=== PATIENT | male | born 1955 | race Caucasian/White ===

== ENCOUNTER → 2019-05-20 | Outpatient (CLI) | payer OTHER ==
--- NOTE | 2019-05-20 09:02 | Diagnostic Imaging Report ---
INDICATION: Upper abdominal pain. FINDINGS: The liver is upper limits of normal in size at 18 cm. There is diffuse increased echogenicity consistent with hepatic steatosis. No discrete liver mass is identified. The portal vein is patent and shows normal direction of flow. The gallbladder is without stones or sludge. No wall thickening or biliary ductal dilatation is identified. The pancreas is obscured by bowel gas. Spleen measures 6.9 cm. Aorta was obscured by bowel gas. IVC is poorly visualized. Both right and left kidneys demonstrate normal cortical thickness and echogenicity. No calculi or hydronephrosis is seen. There is no ascites. IMPRESSION: 1. Hepatic steatosis. 2. No evidence of cholelithiasis or acute cholecystitis. 3. No other significant abnormality is seen, however, study is somewhat compromised due to bowel gas. Dictated by: Dictated on workstation # [id number]
== END ==
LOC: RAD 08:08
PROVIDERS: ATTEND Nurse Practitioner
DX: K76.0 Fatty (change of) liver, not elsewhere classified (principal)
CPT/HCPCS: 76700

== ENCOUNTER → 2020-06-23 | Outpatient (CLI) | payer OTHER ==
[~2020-06-23] VITALS: Ht 175 cm; Wt 106.0 kg
[~2020-06-23] MED LIST: CATHETER FLUSH 10 ML SYR IV PRN; REGADENOSON 0.4 MG/5 ML SYR (LEXISCAN) IV ONE
[2020-06-23 11:00] VITALS: BP 155/95
--- NOTE | 2020-06-23 13:22 | STRESS TEST ---
DATE OF SERVICE: 06/23/2020 RESTING AND POST REGADENOSON TECHNETIUM-99M TETROFOSMIN SPECT CT IMAGING CLINICAL DIAGNOSIS: Shortness of breath. ORDERING PHYSICIAN: Dr. Hansen. Baseline images were carried out after injection of 10.38 mCi of technetium-99m Tetrofosmin. This was followed by 0.4 mg of Regadenoson and 33 mCi of technetium-99m Tetrofosmin for stress imaging. The electrocardiogram showed sinus rhythm with a right bundle branch block pattern. This did not change with the Regadenoson infusion. The patient tolerated the procedure well. Review of images at rest and following stress indicates a small basal inferior perfusion defect that appears predominantly fixed. Gated images show a well preserved global left ventricular systolic function. No distinct regional wall motion abnormalities seen. Left ventricular ejection fraction is calculated to be 76%. Left ventricular end diastolic volume is 39 mL. TID is absent (0.97). CONCLUSIONS: 1. This study is suggestive of a small basal inferior infarction with a small amount of ischemia. 2. Normal to hyperdynamic left ventricular systolic function with a calculated ejection fraction of 76%. Job ID: [id number] DocumentID: [id number] Dictated Date: 06/23/2020 12:41:02 Engine House Helper Date: 06/23/2020 13:21:56 Dictated By: ZULLY HANSEN MD, MA, FACP, FACC, MTDD
== END ==
LOC: CARD 09:37
PROVIDERS: ATTEND Internal Medicine Cardiovascular Disease
DX: R06.09 Other forms of dyspnea (principal)
CPT/HCPCS: 78452; 93017; 93306

== ENCOUNTER 2020-06-30 08:00 | Day surgery (SDC) | payer OTHER ==
[~2020-06-30] VITALS: Ht 175 cm; Wt 105.0 kg
[2020-06-30] VITALS (12 sets, daily range): BP systolic 98–157; BP diastolic 72–108
[2020-06-30 07:33] LABS: HEMOGLOBIN 14.8 g/dL (13.3-17.7); MEAN PLATELET VOLUME 9.7 fL (9.0-12.2); WHITE BLOOD COUNT 7.7 10^3/uL (4.3-11.0)
[2020-06-30 07:47] LABS: PROTHROMBIN TIME PATIENT 13.5 SEC (12.2-14.7)
[2020-06-30 07:53] LABS: ALANINE AMINOTRANSFERASE 61 U/L (0-55); ALBUMIN 4.3 GM/DL (3.2-4.5); ALKALINE PHOSPHATASE 73 U/L (40-136); BILIRUBIN,TOTAL 0.9 MG/DL (0.1-1.0); BUN/CREATININE RATIO 11; CALCIUM 9.4 MG/DL (8.5-10.1); CARBON DIOXIDE 23 MMOL/L (21-32); CHLORIDE 105 MMOL/L (98-107); CHOLESTEROL 144 MG/DL (< 200); CREATININE SERUM 1.11 MG/DL (0.60-1.30); GFR ESTIMATED > 60; GLUCOSE 108 MG/DL (70-105); HDL CHOLESTEROL 37 MG/DL (40-60); POTASSIUM 3.5 MMOL/L (3.6-5.0); SODIUM 141 MMOL/L (135-145); TOTAL PROTEIN 8.3 GM/DL (6.4-8.2); TRIGLYCERIDES 100 MG/DL (<150); VLDL CHOLESTEROL 20 MG/DL (5-40)
[~2020-06-30 08:00] MED LIST changes: +ALLO100T PO; +ASPI-1238 PO; +ATOR80TA76 PO; -CATHETER FLUSH 10 ML SYR IV PRN; +HEParin (CATH LAB) 2,000 ML IV ONE; +HYDR25TA4 PO; +LIDOCAINE 1% INJ 20 ML 20 ML VIAL INJ ONE; +LIDOCAINE 1% INJ 20 ML 20 ML VIAL ONE; +MIDAZOLAM 5 MG/5 ML (VERSED) VIAL ONE; +NS IV 1000 ML 1,000 ML IV SCH; +NS IV 1000 ML 1,000 ML ONE; +OMEP20CA18 PO; +POTA20TA15 PO; +PROP10TA8 PO; -REGADENOSON 0.4 MG/5 ML SYR (LEXISCAN) IV ONE; +fentaNYL INJECTION 100 MCG/2 ML AMP ONE
--- NOTE | 2020-06-30 08:50 | Cardiac Procedure Note-CS/ASA ---
Pre-Procedure Note Pre-Op Procedure Note H&P Reviewed The H&P was reviewed, patient examined and no changes noted. Date H&P Reviewed: Jun 30, 2020 Time H&P Reviewed: 08:20 Conscious Sedation Pre-Proced Time 08:20 ASA Score 3 For ASA 3 and 4: Consider anesthesia and medical clearance. Also, for patients with a history of failed moderate sedation consider anesthesia. Airway Lungs Heart ASA score ASA 1: a normal healthy patient ASA 2: a patient with a mild systemic disease (mid diabetes, controlled hypertension, obesity ASA 3: a patient with a severe systemic disease that limits activity (angina, COPD, prior Myocardial infarction) ASA 4: a patient with an incapacitating disease that is a constant threat to life (CHF, renal failure) ASA 5: a moribund patient not expected to survive 24 hrs. (ruptured aneurysm) ASA 6: a declared brain- patient whose organs are being harvested. For emergent operations, add the letter E after the classification Mallampati Classification Grade 2 Sedation Plan Analgesia, Amnesia, Plan communicated to team members, Discussed options with patient/fam, Discussed risks with patient/fam The patient is an appropriate candidate to undergo the planned procedure, sedation, and anesthesia. The patient immediately re-assessed prior to indication. ZULLY FLANAGAN MD FACP FAC CCDS Jun 30, 2020 08:50
[2020-06-30] MEDS ORDERED: PROP10TA8 PO (08:54)
--- NOTE | 2020-06-30 08:54 | Discharge Inst-Cardiology ---
Discharge Inst-Cardiac Discharge Medications New Medications: Propranolol HCl (Propranolol HCl) 10 Mg Tablet 10 MG PO TID, #90 TAB 5 Refills Continued Medications: Allopurinol (Allopurinol) 100 Mg Tablet 100 MG PO DAILY, TAB Aspirin (Aspirin EC) 81 Mg Tablet.dr 81 MG PO DAILY, TAB Atorvastatin Calcium (Atorvastatin Calcium) 80 Mg Tablet 80 MG PO HS, TAB Hydrochlorothiazide (Hydrochlorothiazide) 25 Mg Tablet 25 MG PO DAILY, TAB Omeprazole (Omeprazole) 20 Mg Capsule.dr 20 MG PO DAILY, CAP Potassium Chloride (Potassium Chloride) 20 Meq Tab.er.prt 20 MEQ PO DAILY Discontinued Medications: Propranolol HCl (Propranolol HCl) 10 Mg Tablet 5 MG PO DAILY, TAB ZULLY FLANAGAN MD FACP FAC CCDS Jun 30, 2020 08:54
--- NOTE | 2020-06-30 08:55 | Discharge Inst-Post CATH ---
Discharge Inst-CATH/EP Post Cardiac Cath/EP D/C Inst Follow Up/Plan F/u with Dr Hansen in 1 week ACTIVITY * Go Home directly and rest. * Limit activity of the leg (or wrist if it was used) for 7 days including aerobics, swimming, jogging, bicycling, etc. * Restrict stair-climbing for 7 days if possible, if not, climb up with your non -cath leg, then bring together on the same step. * Avoid lifting, pushing, pulling or excessive movement of the affected extr emity for 7 days. * Customary sexual activity may be resumed after 2 days-use caution not to use a position that strains or causes pain to the affected extremity. * No driving for 24 hours. * NO SMOKING. * Avoid straining for bowel movements for 7 days. * Gentle walking on level ground is allowed. * Returning to work will depend on the type of procedure and the results. Your doctor will discuss this with you. CALL YOUR DOCTOR FOR ANY OF THE FOLLOWING: *If bleeding from the puncture site occurs- Apply gentle pressure to site with clean cloth and call your doctor or EMS. * If a knot or lump forms under the skin, increases in size, or causes pain. * If bruising appears to be worsening or moving further down your leg instead of disappearing. * Temperature above 101 F. CARE OF YOUR GROIN INCISION; * Bruising or purple discoloration of the skin near the puncture site is common. * You may shower only, no bathtub bathing for 5 days. Be careful to avoid slipping as your leg may feel stiff. * If a closure device was used on your femoral artery, please see the attached guide regarding care of the device and your leg. * Leave dressing on FOR 24 hours. CARE OF YOUR WRIST INCISION; * Bruising or purple discoloration of the skin near the puncture site is common. * You may shower. * DO NOT submerge wrist. * Leave dressing on FOR 24 hours. ZULLY HANSEN MD FACP FAC CCDS Jun 30, 2020 08:55
[2020-06-30] MEDS ORDERED: PATIENT MAY USE OWN MEDS, ALL PO SCH (09:00)
[2020-06-30] MEDS ORDERED: NS IV 1000 ML 1,000 ML IV SCH (09:00)
[2020-06-30] MEDS ORDERED: KCL 20 MEQ TAB (K-DUR) PO ONE (09:00)
--- NOTE | 2020-06-30 11:46 | CARDIAC CATHETERIZATION ---
DATE OF SERVICE: 06/30/2020 CARDIAC CATHETERIZATION REPORT The patient is a 65-year-old man with multiple coronary artery disease risk factors who has been experiencing palpitations and chest discomfort. Myocardial perfusion imaging was abnormal. Cardiac catheterization was carried out after having obtained an informed consent. DESCRIPTION OF PROCEDURE: He was brought to the cardiac catheterization laboratory in a fasting state. Right groin was prepared and draped in the usual sterile fashion. Lidocaine 1% was used for local anesthesia. Modified Seldinger technique was used to advance a 5-Cymro sheath into the right femoral artery. A 5-Cymro JL4 catheter was used for left coronary angiography. A 5-Cymro JR4 catheter was used for right coronary angiography. A 5-Cymro pigtail catheter was used for left heart catheterization and left ventricular angiography. The catheter was pulled back and removed. Angiography of the right femoral artery was carried out through the sheath. Mynx was used to achieve hemostasis. He tolerated the procedure well. HEMODYNAMICS: Left ventricular end-diastolic pressure following coronary angiography was 14 mmHg. There was no significant pressure gradient on pullback across the aortic valve. LEFT VENTRICULAR ANGIOGRAPHY: Left ventricular angiography was carried out in the right anterior oblique projection. Global left ventricular systolic function is well preserved. No regional wall motion abnormalities seen on this view. Left ventricular ejection fraction is estimated to be 55% to 60%. CORONARY ANGIOGRAPHY: Mild coronary calcification is seen. Left main coronary artery is free of significant disease. Left anterior descending artery has mild plaques. Ramus intermedius artery has mild plaques. Left circumflex artery is codominant and does not exhibit significant disease. Right coronary artery is codominant and exhibits mild plaque. CONCLUSIONS: 1. Angiographically mild coronary artery disease. 2. Normal global left ventricular systolic function with ejection fraction of 50 to 60%. 3. Left ventricular end-diastolic pressure is 14 mmHg. DISCUSSION AND RECOMMENDATIONS: Based on results of the study, it appears appropriate to continue a conservative approach. Risk factor modification has been reviewed. Current regimen consists of low dose aspirin, statin, and beta-hugo. This is being continued. He has a history of hypertension and takes a very small dose of propranolol. We have advised that he increase his propranolol from 5 mg a day to 10 mg 3 times a day. Outpatient followup is advised. Job ID: [id number] DocumentID: [id number] Dictated Date: 06/30/2020 09:00:18 Inshore Undersea Warfare Officer Date: 06/30/2020 11:44:49 Dictated By: ZULLY FLANAGAN MD, MA, FACP, FACC,
--- NOTE | 2020-06-30 13:40 | OPERATIVE REPORT ---
DATE OF SERVICE: 06/30/2020 PREOPERATIVE DIAGNOSIS: Palpitations. POSTOPERATIVE DIAGNOSIS: Palpitations. PROCEDURE PERFORMED: Implantable loop recorder implantation. INDICATIONS FOR PROCEDURE: The patient is a 65-year-old gentleman, who has palpitations that are relatively infrequent, but quite bothersome to him. Implantable loop recorder implantation was carried out today after having obtained an informed consent. DESCRIPTION OF PROCEDURE: [facility] The left prepectoral area was prepared and draped in the usual sterile fashion. Lidocaine 1% was used for local anesthesia. The tools provided with the [employer] Reveal LINQ device were used to make a subcutaneous pocket anterior to the left fourth intercostal space into which the device was placed. The serial number of the device is [id number]. The skin edges were closed using Dermabond and Steri-Strips. The patient tolerated the procedure well. Job ID: [id number] DocumentID: [id number] Dictated Date: 06/30/2020 09:03:02 Dredge Pumper Date: 06/30/2020 13:40:12 Dictated By: ZULLY FLANAGAN MD, MA, FACP, FACC,
== END 2020-06-30 12:35 | disposition home or self-care (01) ==
LOC: CATH 08:00 → SDC 09:23 → CATH 12:35
PROVIDERS: ATTEND Internal Medicine Cardiovascular Disease
DX: I25.10 Atherosclerotic heart disease of native coronary artery without angina pectoris (principal); I48.0 Paroxysmal atrial fibrillation; Z79.82 Long term (current) use of aspirin; Z79.899 Other long term (current) drug therapy; Z88.8 Allergy status to other drugs, medicaments and biological substances; Z87.891 Personal history of nicotine dependence; Z83.3 Family history of diabetes mellitus; Z80.9 Family history of malignant neoplasm, unspecified
CPT/HCPCS: 33285; 36415; 80053; 80061; 85027; 85610; 85730; 87081; 93458

== ENCOUNTER 2020-08-06 01:42 | Emergency (ER) | payer OTHER ==
[~2020-08-06] VITALS: Ht 175.3 cm; Wt 106.6 kg
[~2020-08-06 01:42] MED LIST changes: -HEParin (CATH LAB) 2,000 ML IV ONE; -LIDOCAINE 1% INJ 20 ML 20 ML VIAL INJ ONE; -LIDOCAINE 1% INJ 20 ML 20 ML VIAL ONE; -MIDAZOLAM 5 MG/5 ML (VERSED) VIAL ONE; -NS IV 1000 ML 1,000 ML IV SCH; -NS IV 1000 ML 1,000 ML ONE; -fentaNYL INJECTION 100 MCG/2 ML AMP ONE
--- NOTE | 2020-08-06 02:01 | ED General ---
General Stated Complaint: HTN,SOB,DIZZY History of Present Illness Date Seen by Provider: Aug 06, 2020 Time Seen by Provider: 01:55 Initial Comments 65-year-old male presents because he just feels "a little unwell" patient reports that around 10 he started feeling a little off. That normally when he feels like this he takes a Klonopin and a "half an anxiety pill and feel it gets better. Reports that he continues to feel that he got little bit worse. Feels like a little "fluttering in his chest" his blood pressure was elevated, felt little short of breath. Little dizzy. Presented here he states he feels a little anxious little dizzy. Still has a little bit of fluttering. Denies any actual pain in his chest. No reports of any fever, chills, vomiting, and wheezing or other complaints Allergies and Home Medications Allergies Coded Allergies: bupropion (Verified Allergy, Unknown, 06/30/20) lisinopril (Verified Allergy, Unknown, 06/30/20) nicotine (Verified Allergy, Unknown, 06/30/20) Home Medications Allopurinol 100 Mg Tablet, 100 MG PO DAILY, (Reported) Aspirin 81 Mg Tablet.dr, 81 MG PO DAILY, (Reported) Atorvastatin Calcium 80 Mg Tablet, 80 MG PO HS, (Reported) Hydrochlorothiazide 25 Mg Tablet, 25 MG PO DAILY, (Reported) Omeprazole 20 Mg Capsule.dr, 20 MG PO DAILY, (Reported) Potassium Chloride 20 Meq Tab.er.prt, 20 MEQ PO DAILY, (Reported) Propranolol HCl 10 Mg Tablet, 10 MG PO TID Prescribed by: ZULLY FLANAGAN on 06/30/20 2259 Patient Home Medication List Home Medication List Reviewed: Yes Review of Systems Review of Systems Constitutional: see HPI; No chills, No fever EENTM: no symptoms reported Respiratory: No cough; short of breath Cardiovascular: see HPI; No chest pain, No palpitations, No syncope Gastrointestinal: No abdominal pain, No constipation, No vomiting Musculoskeletal: no symptoms reported Skin: no symptoms reported Psychiatric/Neurological: No Symptoms Reported Past Kacqrvy-Zhjohp-Sahubw Hx Past Med/Social Hx: Reviewed Nursing Past Med/Soc Hx Patient Social History Recent Hopitalizations: No Immunizations Up To Date Tetanus Booster (TDap): Unknown Date of Influenza Vaccine: Feb 17, 2021 Past Medical History Respiratory: No Currently Using CPAP: No Currently Using BIPAP: No Cardiac: Yes Atrial Fibrillation, High Cholesterol, Hypertension Neurological: No Genitourinary: No Gastrointestinal: Yes Ulcer Cancer: No Physical Exam Vital Signs Vital Signs - First Documented 08/06/20 01:48 Temp 36.9 Pulse 103 Resp 18 B/P (MAP) 159/102 (121) Pulse Ox 99 O2 Delivery Room Air Capillary Refill : Height, Weight, BMI Height: '" Weight: lbs. oz. kg; 34.28 BMI Method: General Appearance: Anxious HEENT: PERRL/EOMI Neck: Normal Inspection, Non Tender, Supple Respiratory: Lungs Clear, Normal Breath Sounds Cardiovascular: Regular Rate, Rhythm, No Edema Gastrointestinal: Non Tender Neurologic/Psychiatric: Alert, Oriented x3, pig caster II-XII Norm as Tested Progress/Results/Core Measures Suspected Sepsis SIRS Temperature: Pulse: Respiratory Rate: Laboratory Tests 08/06/20 02:04: White Blood Count 7.5 Blood Pressure / Mean: Laboratory Tests 08/06/20 02:04: Creatinine 0.98, INR Comment 1.0, Platelet Count 233, Total Bilirubin 0.5 Results/Orders Lab Results Laboratory Tests Test 08/06/20 02:04 Range/Units White Blood Count 7.5 4.3-11.0 10^3/uL Red Blood Count 4.53 4.35-5.85 10^6/uL Hemoglobin 14.1 13.3-17.7 G/DL Hematocrit 42 40-54 % Mean Corpuscular Volume 92 80-99 FL Mean Corpuscular Hemoglobin 31 25-34 PG Mean Corpuscular Hemoglobin Concent 34 32-36 G/DL Red Cell Distribution Width 14.3 10.0-14.5 % Platelet Count 233 130-400 10^3/uL Mean Platelet Volume 10.5 H 7.4-10.4 FL Immature Granulocyte % (Auto) 0 % Neutrophils (%) (Auto) 64 42-75 % Lymphocytes (%) (Auto) 24 12-44 % Monocytes (%) (Auto) 10 0-12 % Eosinophils (%) (Auto) 2 0-10 % Basophils (%) (Auto) 0 0-10 % Neutrophils # (Auto) 4.8 1.8-7.8 X 10^3 Lymphocytes # (Auto) 1.8 1.0-4.0 X 10^3 Monocytes # (Auto) 0.8 0.0-1.0 X 10^3 Eosinophils # (Auto) 0.1 0.0-0.3 10^3/uL Basophils # (Auto) 0.0 0.0-0.1 10^3/uL Immature Granulocyte # (Auto) 0.0 0.0-0.1 10^3/uL Prothrombin Time 13.4 12.2-14.7 SEC INR Comment 1.0 0.8-1.4 Activated Partial Thromboplast Time 29 24-35 SEC Sodium Level 143 135-145 MMOL/L Potassium Level 3.8 3.6-5.0 MMOL/L Chloride Level 108 H 98-107 MMOL/L Carbon Dioxide Level 24 21-32 MMOL/L Anion Gap 11 5-14 MMOL/L Blood Urea Nitrogen 14 7-18 MG/DL Creatinine 0.98 0.60-1.30 MG/DL Estimat Glomerular Filtration Rate > 60 BUN/Creatinine Ratio 14 Glucose Level 167 H 70-105 MG/DL Calcium Level 9.5 8.5-10.1 MG/DL Corrected Calcium 9.4 8.5-10.1 MG/DL Magnesium Level 1.8 1.6-2.4 MG/DL Total Bilirubin 0.5 0.1-1.0 MG/DL Aspartate Amino Transf (AST/SGOT) 43 H 5-34 U/L Alanine Aminotransferase (ALT/SGPT) 49 0-55 U/L Alkaline Phosphatase 73 40-136 U/L Myoglobin 31.9 10.0-92.0 NG/ML Troponin I < 0.30 <0.30 NG/ML Total Protein 7.5 6.4-8.2 GM/DL Albumin 4.1 3.2-4.5 GM/DL My Orders Orders - MARTINEZ,CAREY L DO Cbc With Automated Diff (08/06/20 02:03) Magnesium (08/06/20 02:03) Chest 1 View Ap/Pa Only (08/06/20 02:03) Ekg Tracing (08/06/20 02:03) Comprehensive Metabolic Panel (08/06/20 02:03) Myoglobin Serum (08/06/20 02:03) Protime With Inr (08/06/20 02:03) Partial Thromboplastin Time (08/06/20 02:03) Monitor-Rhythm Ecg Trace Only (08/06/20 02:03) Aspirin Chewable Tablet (Baby Aspirin Ch (08/06/20 02:15) Ed Iv/Invasive Line Start (08/06/20 02:03) Troponin I Fs (08/06/20 02:03) Medications Given in ED Current Medications Medications Dose Ordered Sig/Christy Route Start Time Stop Time Status Last Admin Dose Admin Aspirin 324 mg ONCE ONCE PO 08/06/20 02:15 08/06/20 02:16 DC 08/06/20 02:27 324 MG Vital Signs/I&O 08/06/20 08/06/20 01:48 03:04 Temp 36.9 Pulse 103 84 Resp 18 13 B/P (MAP) 159/102 (121) 126/91 Pulse Ox 99 94 O2 Delivery Room Air Room Air Capillary Refill : Progress Note : Progress Note Patient symptoms are more consistent with anxiety. Patient did have a negative heart cath on 06/30/2020. Patient with no acute findings. Patient's blood pressure was in the 115 systolic with heart rates in mid 80s upon discharge. Patient was feeling better. Patient discharged home in stable condition ECG Initial ECG Impression Date: Aug 06, 2020 Initial ECG Impression Time: 01:58 Initial ECG Rate: 88 Initial ECG Rhythm: Normal Sinus Initial ECG Intervals: QT (qtc 475) Initial ECG Intervals Incomplete RBBB Comment Heart rate 88, sinus rhythm, no acute changes Diagnostic Imaging Diagonstic Imaging: Xray Comments No acute findings Departure Impression Primary Impression: Anxiety Disposition: 01 HOME, SELF-CARE Condition: Stable Departure-Patient Inst. Referrals: NO,LOCAL PHYSICIAN (PCP) Primary Care Physician YANA MEDINA (Family) Primary Care Physician Patient Instructions: Anxiety, Adult (DC), Tips to Help You [place] in Uncertain Times CAREY MARTINEZ DO Aug 06, 2020 02:01
[2020-08-06] MEDS ORDERED: ASPIRIN 81 MG CHEW (CHILDREN'S ASA) PO ONE (02:15)
[2020-08-06 02:31] LABS: HEMATOCRIT 42 % (40-54); HEMOGLOBIN 14.1 G/DL (13.3-17.7); MEAN CORPUSCULAR HEMOGLOBIN 31 PG (25-34); WHITE BLOOD COUNT 7.5 10^3/uL (4.3-11.0)
[2020-08-06 02:32] LABS: BASOPHILS % (AUTO) 0 % (0-10); EOSINOPHILS # (AUTO) 0.1 10^3/uL (0.0-0.3); EOSINOPHILS % (AUTO) 2 % (0-10); LYMPHOCYTES # (AUTO) 1.8 X 10^3 (1.0-4.0); LYMPHOCYTES % (AUTO) 24 % (12-44); MEAN CORPUSCULAR HGB CONC 34 G/DL (32-36); MEAN CORPUSCULAR VOLUME 92 FL (80-99); MEAN PLATELET VOLUME 10.5 FL (7.4-10.4); MONOCYTES # (AUTO) 0.8 X 10^3 (0.0-1.0); MONOCYTES % (AUTO) 10 % (0-12); NEUTROPHILS # (AUTO) 4.8 X 10^3 (1.8-7.8); NEUTROPHILS % (AUTO) 64 % (42-75); PLATELET COUNT 233 10^3/uL (130-400)
[2020-08-06 02:39] LABS: PROTHROMBIN TIME PATIENT 13.4 SEC (12.2-14.7)
[2020-08-06 02:44] LABS: ALANINE AMINOTRANSFERASE 49 U/L (0-55); ALBUMIN 4.1 GM/DL (3.2-4.5); ALKALINE PHOSPHATASE 73 U/L (40-136); BILIRUBIN,TOTAL 0.5 MG/DL (0.1-1.0); BUN/CREATININE RATIO 14; CALCIUM 9.5 MG/DL (8.5-10.1); CARBON DIOXIDE 24 MMOL/L (21-32); CHLORIDE 108 MMOL/L (98-107); CREATININE SERUM 0.98 MG/DL (0.60-1.30); GFR ESTIMATED > 60; GLUCOSE 167 MG/DL (70-105); MAGNESIUM 1.8 MG/DL (1.6-2.4); POTASSIUM 3.8 MMOL/L (3.6-5.0); SODIUM 143 MMOL/L (135-145); TOTAL PROTEIN 7.5 GM/DL (6.4-8.2)
[2020-08-06 03:04] VITALS: BP 126/91
--- NOTE | 2020-08-06 08:23 | Diagnostic Imaging Report ---
INDICATION: Hypertension and chest pain Portable chest 2:03 AM There is a loop recorder projecting over the left mid chest. Heart size and pulmonary vascularity are normal. Lungs are clear. There are no effusions or pneumothoraces. IMPRESSION: No acute abnormalities in the chest Dictated by: Dictated on workstation # [id number]
== END 2020-08-06 03:04 | disposition home or self-care (01) ==
LOC: EDUNIT# 01:42 → ER FS 01:45
DX: F41.9 Anxiety disorder, unspecified (principal); I10 Essential (primary) hypertension; E78.00 Pure hypercholesterolemia, unspecified; Z88.8 Allergy status to other drugs, medicaments and biological substances; Z79.82 Long term (current) use of aspirin
CPT/HCPCS: 36415; 71045; 80053; 83735; 83874; 84484; 85025; 85610; 85730; 93005; 93041

== ENCOUNTER 2020-08-21 10:58 | Emergency (ER) | payer OTHER ==
[2020-08-21] MEDS ORDERED: HYDROcodone/APAP 5 MG/325 MG (LORTAB) TAB PO ONE (11:15)
[2020-08-21 11:28] LABS: HEMATOCRIT 43 % (40-54); HEMOGLOBIN 14.5 G/DL (13.3-17.7); MEAN CORPUSCULAR HEMOGLOBIN 31 PG (25-34); MEAN CORPUSCULAR HGB CONC 34 G/DL (32-36); MEAN CORPUSCULAR VOLUME 92 FL (80-99); MEAN PLATELET VOLUME 10.1 FL (7.4-10.4); PLATELET COUNT 244 10^3/uL (130-400); WHITE BLOOD COUNT 7.2 10^3/uL (4.3-11.0)
[2020-08-21 11:29] LABS: BASOPHILS % (AUTO) 0 % (0-10); EOSINOPHILS # (AUTO) 0.1 10^3/uL (0.0-0.3); EOSINOPHILS % (AUTO) 2 % (0-10); LYMPHOCYTES # (AUTO) 2.6 X 10^3 (1.0-4.0); LYMPHOCYTES % (AUTO) 36 % (12-44); MONOCYTES # (AUTO) 0.7 X 10^3 (0.0-1.0); MONOCYTES % (AUTO) 10 % (0-12); NEUTROPHILS # (AUTO) 3.8 X 10^3 (1.8-7.8); NEUTROPHILS % (AUTO) 52 % (42-75)
--- NOTE | 2020-08-21 11:36 | Diagnostic Imaging Report ---
EXAMINATION: Right foot at 1122 AM INDICATION: Foot pain 3 views were obtained. There are no prior studies available for comparison. On the lateral view, there is a small 7 mm fairly well-circumscribed calcific density along the posterior margin of the anterior aspect of the navicular bone. This finding is difficult to appreciate on the other 2 projections. This could represent a small acute avulsion fracture. The possibility that this is chronic in nature should also be considered. Clinical follow-up is recommended. No other fracture or acute bony abnormality is appreciated. There is mild bony overgrowth of the lateral aspect of the head of the proximal phalanx of the great toe. This may be a sequela of prior trauma. The Lisfranc joint seems well maintained. The soft tissues are unremarkable. IMPRESSION: 1. The small calcific density along the posterior margin of the anterior aspect of the navicular bone is of uncertain etiology. Considerations and recommendations as above. 2. There is no acute bony abnormality identified otherwise. Dictated by: Dictated on workstation # [id number]
[2020-08-21 11:49] LABS: CALCIUM 9.7 MG/DL (8.5-10.1); CREATININE SERUM 1.22 MG/DL (0.60-1.30); POTASSIUM 4.1 MMOL/L (3.6-5.0)
[2020-08-21] MEDS ORDERED: predniSONE 20 MG TAB PO ONE (12:15)
--- NOTE | 2020-08-21 12:20 | ED Lower Extremity ---
General Chief Complaint: Lower Extremity Stated Complaint: RT FOOT PAIN/SWELLING Nursing Triage Note: Sent from [facility] for foot pain. Has had foot pain x 3 days. Hx of gout and was placed on indomethacin. Swelling and pain has increased. Nursing Sepsis Screen: No Definite Risk Source: family Exam Limitations: no limitations History of Present Illness Date Seen by Provider: Aug 21, 2020 Time Seen by Provider: 11:00 Initial Comments Patient is a 65-year-old male with history of gout who presents with right great toe pain for 2 days. Patient awoke with pain redness swelling tenderness over his right great toe joint. Pain is dull severe moderate at rest. It is worse with palpation and movement. It is nonradiating nonmigratory and episodic. He denies trauma to this region. He was evaluated by his PCP and was prescribed indomethacin and has increased his allopurinol. He states this is not helped. He was referred by his PCP to the ED due to concerns of a possible blood clot. No calf pain tenderness swelling. No chest pain shortness of breath. Patient is not hypoxic. No history of DVT or PE. No other acute symptoms or complaints. Onset: just prior to arrival Severity: moderate Pain/Injury Location: right ankle Method of Injury: other Modifying Factors: Improves With Other Allergies and Home Medications Allergies Coded Allergies: bupropion (Verified Allergy, Unknown, 06/30/20) lisinopril (Verified Allergy, Unknown, 06/30/20) nicotine (Verified Allergy, Unknown, 06/30/20) Home Medications Allopurinol 100 Mg Tablet, 100 MG PO DAILY, (Reported) Aspirin 81 Mg Tablet.dr, 81 MG PO DAILY, (Reported) Atorvastatin Calcium 80 Mg Tablet, 80 MG PO HS, (Reported) Hydrochlorothiazide 25 Mg Tablet, 25 MG PO DAILY, (Reported) Omeprazole 20 Mg Capsule.dr, 20 MG PO DAILY, (Reported) Potassium Chloride 20 Meq Tab.er.prt, 20 MEQ PO DAILY, (Reported) Propranolol HCl 10 Mg Tablet, 10 MG PO TID Prescribed by: ZULLY FLANAGAN on 06/30/20 [id number] Patient Home Medication List Home Medication List Reviewed: Yes Review of Systems Constitutional: see HPI EENTM: see HPI Respiratory: see HPI Cardiovascular: see HPI Genitourinary: see HPI Musculoskeletal: see HPI Psychiatric/Neurological: See HPI All Other Systems Reviewed Negative Unless Noted: Yes Past Hlsbxcr-Ipfbbc-Tbtvav Hx Past Med/Social Hx: Reviewed Nursing Past Med/Soc Hx Patient Social History Alcohol Use: Denies Use Smoking Status: Former Smoker Former Smoker, Quit: Apr 07, 2019 2nd Hand Smoke Exposure: No Recent Infectious Disease Expo: No Recent Hopitalizations: No Immunizations Up To Date Tetanus Booster (TDap): Unknown Date of Influenza Vaccine: Feb 17, 2021 Past Medical History Surgeries: Yes (KNEE RECONSTRUCTION ON RIGHT) Respiratory: No Currently Using CPAP: No Currently Using BIPAP: No Cardiac: Yes Atrial Fibrillation, High Cholesterol, Hypertension Neurological: No Genitourinary: No Gastrointestinal: Yes Ulcer Musculoskeletal: Yes (DVT) Gout Endocrine: No Cancer: No Psychosocial: No Physical Exam Vital Signs Vital Signs - First Documented 08/21/20 11:06 Temp 36.7 Pulse 78 Resp 16 B/P (MAP) 150/88 (108) Pulse Ox 96 Capillary Refill : Less Than 3 Seconds Height, Weight, BMI Height: '" Weight: lbs. oz. kg; 34.00 BMI Method: General Appearance: no apparent distress HEENT: PERRL/EOMI Feet: right foot soft tissue tenderness (Dorsal right foot), right foot swelling (Tenderness over right first MCP joint, mild erythema, no cellulitis streaking induration or weeping. No deformity or bruising) Neurologic/Psychiatric: no motor/sensory deficits, alert Skin: warm/dry Progress/Results/Core Measures Results/Orders Lab Results Laboratory Tests Test 08/21/20 11:19 Range/Units White Blood Count 7.2 4.3-11.0 10^3/uL Red Blood Count 4.65 4.35-5.85 10^6/uL Hemoglobin 14.5 13.3-17.7 G/DL Hematocrit 43 40-54 % Mean Corpuscular Volume 92 80-99 FL Mean Corpuscular Hemoglobin 31 25-34 PG Mean Corpuscular Hemoglobin Concent 34 32-36 G/DL Red Cell Distribution Width 14.3 10.0-14.5 % Platelet Count 244 130-400 10^3/uL Mean Platelet Volume 10.1 7.4-10.4 FL Immature Granulocyte % (Auto) 0 % Neutrophils (%) (Auto) 52 42-75 % Lymphocytes (%) (Auto) 36 12-44 % Monocytes (%) (Auto) 10 0-12 % Eosinophils (%) (Auto) 2 0-10 % Basophils (%) (Auto) 0 0-10 % Neutrophils # (Auto) 3.8 1.8-7.8 X 10^3 Lymphocytes # (Auto) 2.6 1.0-4.0 X 10^3 Monocytes # (Auto) 0.7 0.0-1.0 X 10^3 Eosinophils # (Auto) 0.1 0.0-0.3 10^3/uL Basophils # (Auto) 0.0 0.0-0.1 10^3/uL Immature Granulocyte # (Auto) 0.0 0.0-0.1 10^3/uL Sodium Level 138 135-145 MMOL/L Potassium Level 4.1 3.6-5.0 MMOL/L Chloride Level 100 98-107 MMOL/L Carbon Dioxide Level 26 21-32 MMOL/L Anion Gap 12 5-14 MMOL/L Blood Urea Nitrogen 19 H 7-18 MG/DL Creatinine 1.22 0.60-1.30 MG/DL Estimat Glomerular Filtration Rate 60 BUN/Creatinine Ratio 16 Glucose Level 85 70-105 MG/DL Calcium Level 9.7 8.5-10.1 MG/DL C-Reactive Protein 0.68 H <0.50 MG/DL My Orders Orders - AIME CAREY DO Cbc With Automated Diff (08/21/20 11:12) Basic Metabolic Panel (08/21/20 11:12) Crp Fs (08/21/20 11:12) Foot 3 View Right (08/21/20 11:12) Hydrocodone/Apap 5/325 Tablet (Lortab 5 (08/21/20 11:15) Uric Acid (08/21/20 11:35) Prednisone Tablet (Deltasone Tablet) (08/21/20 12:15) Medications Given in ED Current Medications Medications Dose Ordered Sig/Christy Route Start Time Stop Time Status Last Admin Dose Admin Acetaminophen/ Hydrocodone Bitart 1 ea ONCE ONCE PO 08/21/20 11:15 08/21/20 11:16 DC 08/21/20 11:16 1 EA Vital Signs/I&O 08/21/20 11:06 Temp 36.7 Pulse 78 Resp 16 B/P (MAP) 150/88 (108) Pulse Ox 96 Blood Pressure Mean: 108 Departure Communication (Admissions) Right foot x-ray: No findings of acute fracture per radiology report. Physical exam and history most consistent with gouty arthritis. Uric acid is a send out and is pending at time. Will place patient in hard soled shoe, instructed to use crutches as needed and placed on prednisone and hydrocodone. He is instructed to follow-up with his PCP on Monday if no improvement. Return precautions reviewed. Impression Primary Impression: Pain of right great toe Additional Impression: Gouty arthritis Disposition: HOME, SELF-CARE Condition: Stable Departure-Patient Inst. Decision time for Depature: 12:24 Referrals: SHERI,LOCAL PHYSICIAN (PCP) Primary Care Physician YANA MEDINA (Family) Primary Care Physician Patient Instructions: Gout Add. Discharge Instructions: Please discontinue indomethacin and take hydrocodone and prednisone as directed. Wear hard soled shoe while walking. Use crutches as needed. Follow-up with your PCP for reevaluation on Monday for reevaluation. Return to the ED if new or worsening symptoms. All discharge instructions reviewed with patient and/or family. Voiced understanding. Scripts Hydrocodone/Acetaminophen (Hydrocodone-Acetamin 7.5-325) 1 Each Tablet 1 EACH PO Q6H, #12 TAB Prov: AIME CAREY DO 08/21/20 Prednisone (Prednisone) 20 Mg Tab 40 MG PO DAILY, #6 TAB 0 Refills Prov: AIME CAREY DO 08/21/20 AIME CAREY DO Aug 21, 2020 12:20
[2020-08-21] MEDS ORDERED: PRD20T PO (12:24)
[2020-08-21] MEDS ORDERED: HYDR-3817 PO (12:24)
[2020-08-21 12:46] VITALS: BP 132/88
== END 2020-08-21 12:48 | disposition home or self-care (01) ==
LOC: EDUNIT# 10:58 → ER FS 11:00
DX: M79.674 Pain in right toe(s) (principal); M10.9 Gout, unspecified; I10 Essential (primary) hypertension; E78.00 Pure hypercholesterolemia, unspecified; Z88.8 Allergy status to other drugs, medicaments and biological substances; Z87.891 Personal history of nicotine dependence; Z79.82 Long term (current) use of aspirin; Z79.899 Other long term (current) drug therapy
CPT/HCPCS: 36415; 73630; 80048; 84550; 85025; 86141

== ENCOUNTER 2020-10-17 18:08 | Emergency (ER) | payer OTHER ==
[~2020-10-17 18:08] MED LIST changes: +HYDR-3817 PO; +PRD20T PO
--- NOTE | 2020-10-17 18:18 | ED Dyspnea ---
General Stated Complaint: SOB | FATIGUE | HIGH BP History of Present Illness Date Seen by Provider: Oct 17, 2020 Time Seen by Provider: 18:13 Initial Comments 65-year-old male presents with chronic fatigue chronic shortness of breath and mild increased blood pressure. Patient reports that his fatigue is worse today and that since last night "he just feels like crap" patient reports that he has been seen multiple times for similar symptoms. That he currently has a loop monitor with concerns for possible atrial fib. Patient has no acute complaints such as cough fever chills nausea vomiting chest pain. Allergies and Home Medications Allergies Coded Allergies: bupropion (Verified Allergy, Unknown, 06/30/20) lisinopril (Verified Allergy, Unknown, 06/30/20) nicotine (Verified Allergy, Unknown, 06/30/20) Home Medications Allopurinol 100 Mg Tablet, 100 MG PO DAILY, (Reported) Aspirin 81 Mg Tablet.dr, 81 MG PO DAILY, (Reported) Atorvastatin Calcium 80 Mg Tablet, 80 MG PO HS, (Reported) Hydrochlorothiazide 25 Mg Tablet, 25 MG PO DAILY, (Reported) Hydrocodone/Acetaminophen 1 Each Tablet, 1 EACH PO Q6H Prescribed by: AIME CAREY on 08/21/20 1224 Omeprazole 20 Mg Capsule.dr, 20 MG PO DAILY, (Reported) Potassium Chloride 20 Meq Tab.er.prt, 20 MEQ PO DAILY, (Reported) Prednisone 20 Mg Tab, 40 MG PO DAILY Prescribed by: AIME CAREY on 08/21/20 1224 Propranolol HCl 10 Mg Tablet, 10 MG PO TID Prescribed by: ZULLY FLANAGAN on 06/30/20 0854 Patient Home Medication List Home Medication List Reviewed: Yes Review of Systems Review of Systems Constitutional: No chills, No fever; malaise Respiratory: short of breath (Chronic) Cardiovascular: No chest pain, No edema, No palpitations Gastrointestinal: No abdominal pain, No nausea, No vomiting Genitourinary: no symptoms reported Musculoskeletal: no symptoms reported Skin: no symptoms reported Psychiatric/Neurological: Other (Fatigue) Endocrine: No Symptoms Reported Hematologic/Lymphatic: No Symptoms Reported Past Uywodhw-Iwmmkb-Dknhwx Hx Past Med/Social Hx: Reviewed Nursing Past Med/Soc Hx Patient Social History Former Smoker, Quit: Apr 07, 2019 2nd Hand Smoke Exposure: No Recent Hopitalizations: No Immunizations Up To Date Tetanus Booster (TDap): Unknown Date of Influenza Vaccine: Feb 17, 2021 Past Medical History Surgeries: Yes (KNEE RECONSTRUCTION ON RIGHT) Respiratory: No Currently Using CPAP: No Currently Using BIPAP: No Cardiac: Yes Atrial Fibrillation, High Cholesterol, Hypertension Neurological: No Genitourinary: No Gastrointestinal: Yes Ulcer Musculoskeletal: Yes (DVT) Gout Endocrine: No Cancer: No Psychosocial: No Physical Exam Vital Signs Vital Signs - First Documented 10/17/20 18:12 Temp 36.2 Pulse 73 Resp 18 B/P (MAP) 166/100 (122) Pulse Ox 98 Capillary Refill : Height, Weight, BMI Height: '" Weight: lbs. oz. 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 Norm as Tested Skin: Normal Color, Warm/Dry Progress/Results/Core Measures Results/Orders Lab Results Laboratory Tests Test 10/17/20 18:22 Range/Units White Blood Count 8.8 4.3-11.0 10^3/uL Red Blood Count 4.52 4.35-5.85 10^6/uL Hemoglobin 14.2 13.3-17.7 G/DL Hematocrit 41 40-54 % Mean Corpuscular Volume 92 80-99 FL Mean Corpuscular Hemoglobin 31 25-34 PG Mean Corpuscular Hemoglobin Concent 34 32-36 G/DL Red Cell Distribution Width 14.4 10.0-14.5 % Platelet Count 215 130-400 10^3/uL Mean Platelet Volume 9.9 7.4-10.4 FL Immature Granulocyte % (Auto) 0 % Neutrophils (%) (Auto) 56 42-75 % Lymphocytes (%) (Auto) 33 12-44 % Monocytes (%) (Auto) 10 0-12 % Eosinophils (%) (Auto) 1 0-10 % Basophils (%) (Auto) 0 0-10 % Neutrophils # (Auto) 4.9 1.8-7.8 X 10^3 Lymphocytes # (Auto) 2.9 1.0-4.0 X 10^3 Monocytes # (Auto) 0.9 0.0-1.0 X 10^3 Eosinophils # (Auto) 0.1 0.0-0.3 10^3/uL Basophils # (Auto) 0.0 0.0-0.1 10^3/uL Immature Granulocyte # (Auto) 0.0 0.0-0.1 10^3/uL Sodium Level 142 135-145 MMOL/L Potassium Level 3.8 3.6-5.0 MMOL/L Chloride Level 108 H 98-107 MMOL/L Carbon Dioxide Level 22 21-32 MMOL/L Anion Gap 12 5-14 MMOL/L Blood Urea Nitrogen 14 7-18 MG/DL Creatinine 1.05 0.60-1.30 MG/DL Estimat Glomerular Filtration Rate > 60 BUN/Creatinine Ratio 13 Glucose Level 98 70-105 MG/DL Calcium Level 9.2 8.5-10.1 MG/DL Corrected Calcium 9.0 8.5-10.1 MG/DL Magnesium Level 2.0 1.6-2.4 MG/DL Total Bilirubin 0.6 0.1-1.0 MG/DL Aspartate Amino Transf (AST/SGOT) 30 5-34 U/L Alanine Aminotransferase (ALT/SGPT) 31 0-55 U/L Alkaline Phosphatase 73 40-136 U/L Troponin I < 0.30 <0.30 NG/ML Pro-B-Type Natriuretic Peptide 104.1 H <75.0 PG/ML Total Protein 7.5 6.4-8.2 GM/DL Albumin 4.3 3.2-4.5 GM/DL My Orders Orders - MARTINEZ,CAREY L DO Cbc With Automated Diff (10/17/20 18:18) Comprehensive Metabolic Panel (10/17/20 18:18) Magnesium (10/17/20 18:18) Ua Culture If Indicated (10/17/20 18:18) Troponin I Fs (10/17/20 18:18) Ed Iv/Invasive Line Start (10/17/20 18:18) Ekg Tracing (10/17/20 18:18) Monitor-Rhythm Ecg Trace Only (10/17/20 18:18) Chest 1 View Ap/Pa Only (10/17/20 18:18) Probnp Fs (10/17/20 18:18) Vital Signs/I&O 10/17/20 18:12 Temp 36.2 Pulse 73 Resp 18 B/P (MAP) 166/100 (122) Pulse Ox 98 Progress Progress Note : Progress Note Patient with no acute findings on labs, EKG or chest x-ray. Patient symptoms are more chronic than acute. Discussed with him the need to follow-up with a primary care provider for further evaluation such as thyroid studies, sleep apnea studies, and other possible etiologies. Patient voices understanding. Patient stable and discharged home Initial ECG Impression Date: Oct 17, 2020 Initial ECG Impression Time: 18:23 Initial ECG Rate: 63 Initial ECG Rhythm: Normal Sinus Initial ECG Intervals: PA (244) Comment Normal sinus rhythm, prolonged PA interval, no acute finding Diagnostic Imaging Diagonstic Imaging: Xray Plain Films/CT/US/NM/MRI: chest Comments Date of Exam:10/17/20 CHEST 1 VIEW AP/PA ONLY INDICATION: Fatigue. EXAMINATION: Chest, 10/17/2020. COMPARISON: 08/06/2020. FINDINGS: There is a loop recorder device in the left mid chest, stable from previous imaging. Heart and pulmonary vasculature are normal. Lungs and pleural spaces clear. No pneumothorax. IMPRESSION: No acute cardiopulmonary process. Departure Impression Primary Impression: Fatigue Qualified Codes: R53.82 - Chronic fatigue, unspecified Additional Impression: Dyspnea Qualified Codes: R06.00 - Dyspnea, unspecified Disposition: 01 HOME, SELF-CARE Condition: Stable Departure-Patient Inst. Referrals: YANA MEDINA (PCP/Family) Primary Care Physician Patient Instructions: Shortness of Breath (Dyspnea) Add. Discharge Instructions: Follow-up with your primary care provider/[facility] for further outpatient evaluation and testing CAREY MARTINEZ DO Oct 17, 2020 18:18
[2020-10-17 18:27] LABS: BASOPHILS % (AUTO) 0 % (0-10); EOSINOPHILS % (AUTO) 1 % (0-10); HEMATOCRIT 41 % (40-54); HEMOGLOBIN 14.2 G/DL (13.3-17.7); LYMPHOCYTES # (AUTO) 2.9 X 10^3 (1.0-4.0); LYMPHOCYTES % (AUTO) 33 % (12-44); MEAN CORPUSCULAR HEMOGLOBIN 31 PG (25-34); MEAN CORPUSCULAR HGB CONC 34 G/DL (32-36); MEAN CORPUSCULAR VOLUME 92 FL (80-99); MEAN PLATELET VOLUME 9.9 FL (7.4-10.4); MONOCYTES # (AUTO) 0.9 X 10^3 (0.0-1.0); MONOCYTES % (AUTO) 10 % (0-12); NEUTROPHILS # (AUTO) 4.9 X 10^3 (1.8-7.8); NEUTROPHILS % (AUTO) 56 % (42-75); PLATELET COUNT 215 10^3/uL (130-400); WHITE BLOOD COUNT 8.8 10^3/uL (4.3-11.0)
[2020-10-17 18:28] LABS: EOSINOPHILS # (AUTO) 0.1 10^3/uL (0.0-0.3)
[2020-10-17 18:44] LABS: ALKALINE PHOSPHATASE 73 U/L (40-136); BILIRUBIN,TOTAL 0.6 MG/DL (0.1-1.0); BUN/CREATININE RATIO 13; CALCIUM 9.2 MG/DL (8.5-10.1); CARBON DIOXIDE 22 MMOL/L (21-32); CHLORIDE 108 MMOL/L (98-107); CREATININE SERUM 1.05 MG/DL (0.60-1.30); GFR ESTIMATED > 60; GLUCOSE 98 MG/DL (70-105); POTASSIUM 3.8 MMOL/L (3.6-5.0); SODIUM 142 MMOL/L (135-145)
[2020-10-17 18:45] LABS: ALANINE AMINOTRANSFERASE 31 U/L (0-55); ALBUMIN 4.3 GM/DL (3.2-4.5); TOTAL PROTEIN 7.5 GM/DL (6.4-8.2)
--- NOTE | 2020-10-17 18:52 | Diagnostic Imaging Report ---
INDICATION: Fatigue. EXAMINATION: Chest, 10/17/2020. COMPARISON: 08/06/2020. FINDINGS: There is a loop recorder device in the left mid chest, stable from previous imaging. Heart and pulmonary vasculature are normal. Lungs and pleural spaces clear. No pneumothorax. IMPRESSION: No acute cardiopulmonary process. Dictated by: Dictated on workstation # [id number]
[2020-10-17 19:35] VITALS: BP 166/100
== END 2020-10-17 19:38 | disposition home or self-care (01) ==
LOC: EDUNIT# 18:08 → ER FS 18:09
DX: R53.83 Other fatigue (principal); R06.00 Dyspnea, unspecified; E66.9 Obesity, unspecified; M10.9 Gout, unspecified; I10 Essential (primary) hypertension; E78.00 Pure hypercholesterolemia, unspecified; Z68.34 Body mass index [BMI] 34.0-34.9, adult; Z87.891 Personal history of nicotine dependence; Z79.899 Other long term (current) drug therapy; Z79.82 Long term (current) use of aspirin; Z79.52 Long term (current) use of systemic steroids
CPT/HCPCS: 36415; 71045; 80053; 83735; 83880; 84484; 85025; 93005; 93041

== ENCOUNTER → 2020-11-10 | Outpatient (CLI) | payer OTHER ==
[~2020-11-10] MED LIST changes: +RT-ALBUTEROL SULF 2.5 MG/3 ML PRE-MIX VIAL INH ONE
== END ==
LOC: RT 08:00
PROVIDERS: ATTEND Nurse Practitioner Family
DX: J45.909 Unspecified asthma, uncomplicated (principal)
CPT/HCPCS: 94060; 94726; 94729

== ENCOUNTER → 2020-12-15 | Outpatient (CLI) | payer OTHER ==
[~2020-12-15] MED LIST changes: -RT-ALBUTEROL SULF 2.5 MG/3 ML PRE-MIX VIAL INH ONE
--- NOTE | 2020-12-15 09:37 | Diagnostic Imaging Report ---
CT Lung Screening INDICATION: Screening for lung cancer, 98 pack year history of smoking, quit smoking one year prior. TECHNIQUE: Noncontrast, low-dose CT imaging performed according to the lung cancer screening protocol. Auto Exposure Controls were utilize during the CT exam to meet ALARA standards for radiation dose reduction. COMPARISON: None available FINDINGS: no significant adenopathy within the chest. Mild scattered vascular calcifications. No aneurysmal dilatation of thoracic aorta. Loop recorder is noted within the left chest. The heart is within normal limits in size. No pericardial effusion. No pleural effusion. No significant hiatal hernia. No pneumothorax. Minimal secretions within the trachea. Mild background emphysematous changes. 0.4 x 0.3 cm solid subpleural right middle lobe pulmonary nodule. No additional focal pulmonary mass or opacity. The minimally visualized upper abdomen is unremarkable. Scattered osseous degenerative changes without acute osseous abnormality. IMPRESSION: No acute abnormality within the chest. 0.4 cm solid right middle lobe pulmonary nodule demonstrating a benign appearance or morphology. No suspicious actionable pulmonary nodules. Mild background emphysematous changes. LUNG-RADS CATEGORY:2S: Benign appearance or behavior. MODIFIER:S: Mild background emphysematous changes. Follow-up: Continued annual low-dose CT of the chest in 12 months. Dictated by: Dictated on workstation # [id number]
== END ==
LOC: RAD 08:15
PROVIDERS: ATTEND Nurse Practitioner Family
DX: Z12.2 Encounter for screening for malignant neoplasm of respiratory organs (principal); R91.1 Solitary pulmonary nodule; J43.9 Emphysema, unspecified; Z87.891 Personal history of nicotine dependence
CPT/HCPCS: 71271

== ENCOUNTER → 2021-05-07 | Outpatient (CLI) | payer OTHER ==
[~2021-05-07] MED LIST changes: +POTA-179 PO; -POTA20TA15 PO
--- NOTE | 2021-05-07 08:43 | Diagnostic Imaging Report ---
PROCEDURE: CT head without contrast. TECHNIQUE: Multiple contiguous axial images were obtained through the brain without the use of intravenous contrast. Auto Exposure Controls were utilized during the CT exam to meet ALARA standards for radiation dose reduction. INDICATION: Dizziness. COMPARISON: None. FINDINGS: Moderate generalized parenchymal volume loss. No CT evidence of a territorial infarction. No intracranial hemorrhage, mass effect, hydrocephalus or extra-axial fluid collections. Osseous structures are intact. Visualized paranasal sinuses and mastoids are clear. IMPRESSION: No acute intracranial CT findings. Dictated by: Dictated on workstation # [id number]
== END ==
LOC: RAD FS 08:11
PROVIDERS: ATTEND Nurse Practitioner
DX: R42 Dizziness and giddiness (principal)
CPT/HCPCS: 70450

== ENCOUNTER → 2022-03-22 | Outpatient (CLI) | payer OTHER ==
[2022-03-22 09:20] VITALS: BP 148/98
== END ==
LOC: CARD 08:12
PROVIDERS: ATTEND Nurse Practitioner Adult Health
DX: I48.91 Unspecified atrial fibrillation (principal)
CPT/HCPCS: 93306

== ENCOUNTER 2022-06-05 15:00 | Observation (INO) | payer OTHER, MEDICARE, MEDICAID ==
[~2022-06-05] VITALS: Ht 172 cm; Wt 103.0 kg
--- NOTE | 2022-06-05 15:17 | ED Cardiac General ---
History of Present Illness General Chief Complaint: Cardiac/General Problems Stated Complaint: IRREGULAR HR History of Present Illness Date Seen by Provider: Jun 05, 2022 Time Seen by Provider: 15:07 Initial Comments 67 yr M with PMH of A-Fib on LOOP on Eliquis/ HTN/ HLD/ with ECHO and Stress test in Feb 2022, shows an EF of 55-65%/ ex-alcohol abuser/ non-smoker, stopped smoking 5 years ago, is here with c/o palpitations and shortness of breath which began today morning. Patient's shortness of breath has been going on for the past 2 to 3 months for which he thinks he was diagnosed with COPD. The palpitations started today morning after he did housework in the morning which he usually does not do. Patient states that he has not been on any cardiac medications since December, but once he started feeling the palpitations today he took 1 dose of propanolol that he had at home. Patient states that metoprolol and propranolol make him feel uncomfortable and he does not like the feeling when he takes those medications, and so he does not take it. Patient states that his channel marketing coordinator is Dr. Louis, and that he also has a second channel marketing coordinator in [place] whose name is Dr. Taylor. Denies dizziness or lightheadedness, chest pain, abdominal pain, diaphoresis, nausea and vomiting, fever. Patient is able to speak in clear sentences without any difficulty, and has stable vitals in the ER. Patient initially denied alcohol abuse, however when labs are discussed with him patient admitted to drinking tequila today morning prior to the start of his palpitations. Allergies and Home Medications Allergies Coded Allergies: bupropion (Verified Allergy, Unknown, 06/30/20) lisinopril (Verified Allergy, Unknown, 06/30/20) nicotine (Verified Allergy, Unknown, 06/30/20) Patient Home Medication List Home Medication List Reviewed: Yes Allopurinol (Allopurinol) 100 Mg Tablet, 100 MG PO DAILY, (Reported) Entered as Reported by: JORGE DON on 06/30/20 07 Aspirin (Aspirin EC) 81 Mg Tablet.dr, 81 MG PO DAILY, (Reported) Entered as Reported by: JORGE DON on 06/30/20 07 Atorvastatin Calcium (Atorvastatin Calcium) 80 Mg Tablet, 80 MG PO HS, (Reported) Entered as Reported by: JORGE DON on 06/30/20 07 Hydrochlorothiazide (Hydrochlorothiazide) 25 Mg Tablet, 25 MG PO DAILY, (Reported) Entered as Reported by: JORGE DON on 06/30/20 07 Hydrocodone/Acetaminophen (Hydrocodone-Acetamin 7.5-325) 1 Each Tablet, 1 EACH PO Q6H Prescribed by: AIME CAREY on 08/21/20 122 Omeprazole (Omeprazole) 20 Mg Capsule.dr, 20 MG PO DAILY, (Reported) Entered as Reported by: JORGE DON on 06/30/20 07 Potassium Chloride (Potassium Chloride) 20 Meq Tab.er.prt, 20 MEQ PO DAILY, (Reported) Entered as Reported by: JORGE DON on 06/30/20740 Prednisone (Prednisone) 20 Mg Tab, 40 MG PO DAILY Prescribed by: AIME CAREY on 08/21/20 122 Propranolol HCl (Propranolol HCl) 10 Mg Tablet, 10 MG PO TID Prescribed by: ZULLY HANSEN on 06/30/20 0854 Review of Systems Review of Systems Constitutional: no symptoms reported EENTM: No Symptoms Reported Respiratory: Shortness of Air Cardiovascular: Palpitations Gastrointestinal: No Symptoms Reported Genitourinary: No Symptoms Reported Musculoskeletal: no symptoms reported Skin: no symptoms reported Psychiatric/Neurological: No Symptoms Reported Endocrine: No Symptoms Reported Hematologic/Lymphatic: No Symptoms Reported Past Ojkiuqd-Hofoql-Kawuna Hx Patient Social History Tobacco Use?: No Use of E-Cig and/or Vaping dev: No Substance use?: No Alcohol Use?: No Pt feels they are or have been: No Immunizations Up To Date Tetanus Booster (TDap): Unknown Past Medical History Surgery/Hospitalization HX: A-FIB WITH 3 ABLATIONS Surgeries: Yes (KNEE RECONSTRUCTION ON RIGHT) Respiratory: No Currently Using CPAP: No Currently Using BIPAP: No Cardiac: Yes Atrial Fibrillation, High Cholesterol, Hypertension Neurological: No Genitourinary: No Gastrointestinal: Yes Ulcer Musculoskeletal: Yes (DVT) Gout Endocrine: No Cancer: No Psychosocial: No Physical Exam Vital Signs Vital Signs - First Documented 06/05/22 15:04 Temp 36.5 Pulse 75 Resp 16 B/P (MAP) 166/74 (104) Pulse Ox 96 O2 Delivery Room Air Capillary Refill : Height, Weight, BMI Height: '" Weight: lbs. oz. kg; 34.00 BMI Method: General Appearance: WD/WN, Mild Distress HEENT: PERRL/EOMI Neck: Full Range of Motion Respiratory: Chest Non Tender, Lungs Clear, Normal Breath Sounds, No Accessory Muscle Use, No Respiratory Distress Cardiovascular: Regular Rate, Rhythm, Normal Peripheral Pulses, Irregularly Ir regular Gastrointestinal: Normal Bowel Sounds, Non Tender, Soft Extremity: Normal Range of Motion Neurologic/Psychiatric: Alert, Oriented x3, No Motor/Sensory Deficits, Normal Mood/Affect Skin: Normal Color Progress/Results/Core Measures Results/Orders Lab Results Laboratory Tests Test 06/05/22 15:10 06/05/22 15:32 Range/Units White Blood Count 9.1 4.3-11.0 10^3/uL Red Blood Count 4.68 4.30-5.52 10^6/uL Hemoglobin 14.7 13.3-17.7 g/dL Hematocrit 43 40-54 % Mean Corpuscular Volume 92 80-99 fL Mean Corpuscular Hemoglobin 31 25-34 pg Mean Corpuscular Hemoglobin Concent 34 32-36 g/dL Red Cell Distribution Width 16.0 H 10.0-14.5 % Platelet Count 248 130-400 10^3/uL Mean Platelet Volume 9.8 9.0-12.2 fL Immature Granulocyte % (Auto) 0 % Neutrophils (%) (Auto) 62 42-75 % Lymphocytes (%) (Auto) 28 12-44 % Monocytes (%) (Auto) 8 0-12 % Eosinophils (%) (Auto) 1 0-10 % Basophils (%) (Auto) 0 0-10 % Neutrophils # (Auto) 5.7 1.8-7.8 10^3/uL Lymphocytes # (Auto) 2.5 1.0-4.0 10^3/uL Monocytes # (Auto) 0.8 0.0-1.0 10^3/uL Eosinophils # (Auto) 0.1 0.0-0.3 10^3/uL Basophils # (Auto) 0.0 0.0-0.1 10^3/uL Immature Granulocyte # (Auto) 0.0 0.0-0.1 10^3/uL Prothrombin Time 14.3 12.2-14.7 SEC INR Comment 1.1 0.8-1.4 Activated Partial Thromboplast Time 31 24-35 SEC D-Dimer 0.46 0.00-0.49 UG/ML Sodium Level 142 135-145 MMOL/L Potassium Level 4.3 3.6-5.0 MMOL/L Chloride Level 102 98-107 MMOL/L Carbon Dioxide Level 25 21-32 MMOL/L Anion Gap 15 H 5-14 MMOL/L Blood Urea Nitrogen 13 7-18 MG/DL Creatinine 1.17 0.60-1.30 MG/DL Estimat Glomerular Filtration Rate 69 BUN/Creatinine Ratio 11 Glucose Level 83 70-105 MG/DL Calcium Level 10.0 8.5-10.1 MG/DL Corrected Calcium 8.5-10.1 MG/DL Total Bilirubin 0.8 0.1-1.0 MG/DL Aspartate Amino Transf (AST/SGOT) 72 H 5-34 U/L Alanine Aminotransferase (ALT/SGPT) 73 H 0-55 U/L Alkaline Phosphatase 77 40-136 U/L Troponin I < 0.30 <0.30 NG/ML Total Protein 8.4 H 6.4-8.2 GM/DL Albumin 4.7 H 3.2-4.5 GM/DL Serum Alcohol < 10 <10 MG/DL Urine Color YELLOW Urine Clarity CLEAR Urine pH 5.5 5-9 Urine Specific [place] <=1.005 1.016-1.022 Urine Protein NEGATIVE NEGATIVE Urine Glucose (UA) NEGATIVE NEGATIVE Urine Ketones NEGATIVE NEGATIVE Urine Nitrite NEGATIVE NEGATIVE Urine Bilirubin NEGATIVE NEGATIVE Urine Urobilinogen 0.2 < = 1.0 MG/DL Urine Leukocyte Esterase NEGATIVE NEGATIVE Urine RBC (Auto) NEGATIVE NEGATIVE Urine RBC NONE /HPF Urine WBC NONE /HPF Urine Squamous Epithelial Cells 5-10 /HPF Urine Crystals NONE /LPF Urine Bacteria NEGATIVE /HPF Urine Casts NONE /LPF Urine Mucus NEGATIVE /LPF Urine Culture Indicated NO Urine Opiates Screen NEGATIVE NEGATIVE Urine Oxycodone Screen NEGATIVE NEGATIVE Urine Methadone Screen NEGATIVE NEGATIVE Urine Propoxyphene Screen NEGATIVE NEGATIVE Urine Barbiturates Screen NEGATIVE NEGATIVE Ur Tricyclic Antidepressants Screen NEGATIVE NEGATIVE Urine Phencyclidine Screen NEGATIVE NEGATIVE Urine Amphetamines Screen NEGATIVE NEGATIVE Urine Methamphetamines Screen NEGATIVE NEGATIVE Urine Benzodiazepines Screen NEGATIVE NEGATIVE Urine Cocaine Screen NEGATIVE NEGATIVE Urine Cannabinoids Screen NEGATIVE NEGATIVE My Orders Orders - CARLEY JARAMILLO MD Chest 1 View Ap/Pa Only (06/05/22 15:17) Cbc With Automated Diff (06/05/22 15:18) Comprehensive Metabolic Panel (06/05/22 15:18) Drug Screen Stat (Urine) (06/05/22 15:18) Ua Culture If Indicated (06/05/22 15:18) Troponin I Fs (06/05/22 15:18) Ekg Tracing (06/05/22 15:19) Continuous Ekg Monitoring (06/05/22 15:19) Fibrin Degradation Products (06/05/22 15:19) Protime With Inr (06/05/22 15:19) Partial Thromboplastin Time (06/05/22 15:19) Alcohol (06/05/22 15:44) Ed Admission (Communication) (06/05/22 16:32) Vital Signs/I&O 06/05/22 06/05/22 15:04 16:49 Temp 36.5 36.5 Pulse 75 62 Resp 16 16 B/P (MAP) 166/74 (104) 153/92 Pulse Ox 96 97 O2 Delivery Room Air Room Air Progress Progress Note : Progress Note 1. PALPITATIONS/ ATRIAL BIGEMINY: - EKG: see below, RBBB and atrial bigeminy - CXR - Troponin: undetected - Pt is on Eliquis at home - Electrolytes normal - Labs unremarkable except for elevated AST/ALT: 72/73. After a lot of questions and varying stories, pt admitted to drinking tequila today morning prior to the start of palpitations. - Discussed with neurologist Dr. Hansen, who recommended propranolol (Inderal) LA 80 mg daily for 30-day supply and follow-up in clinic. However patient is refusing any beta-hugo saying that it makes him feel uncomfortable and sick, and that is the reason he stopped propranolol intake in December, although he told me earlier that the doctor stopped it. Then discussed with hospitalist who accepted for admission to observation, and plan is for patient to start propranolol at [place] and will be monitored for any adverse reactions. There is no propranolol available at [facility]. Patient agrees to this plan. -The patient was seen in the ED, and treated appropriately to presentation at a specific point in time. Patient is informed that there is a possibility that disease and illness can evolve and change in acuity rapidly or slowly after patient is discharged from the ER. Precautionary advice given to the patient for immediate return to ER if symptoms worsen or do not resolve, and to seek emergency care sooner rather than later. Pt also advised on the importance of PCP follow up and compliance with management and follow up plan with PCP and/or specialist, as this is part of the management plan. Pt verbally expressed understanding. Departure Impression Primary Impression: Palpitations Additional Impression: Atrial bigeminy Disposition: 30 STILL A PATIENT Condition: Stable Admissions Decision to Admit Reason: Admit from ER (General) Transfer Method of Transfer: EMS Departure-Patient Inst. Referrals: YANA MEDINA (PCP/Family) Primary Care Physician CARLEY JARAMILLO MD Jun 05, 2022 15:17
[2022-06-05 15:22] LABS: BASOPHILS % (AUTO) 0 % (0-10); EOSINOPHILS # (AUTO) 0.1 10^3/uL (0.0-0.3); EOSINOPHILS % (AUTO) 1 % (0-10); HEMATOCRIT 43 % (40-54); HEMOGLOBIN 14.7 g/dL (13.3-17.7); LYMPHOCYTES # (AUTO) 2.5 10^3/uL (1.0-4.0); LYMPHOCYTES % (AUTO) 28 % (12-44); MEAN CORPUSCULAR HEMOGLOBIN 31 pg (25-34); MEAN CORPUSCULAR HGB CONC 34 g/dL (32-36); MEAN CORPUSCULAR VOLUME 92 fL (80-99); MEAN PLATELET VOLUME 9.8 fL (9.0-12.2); MONOCYTES # (AUTO) 0.8 10^3/uL (0.0-1.0); MONOCYTES % (AUTO) 8 % (0-12); NEUTROPHILS # (AUTO) 5.7 10^3/uL (1.8-7.8); NEUTROPHILS % (AUTO) 62 % (42-75); PLATELET COUNT 248 10^3/uL (130-400); WHITE BLOOD COUNT 9.1 10^3/uL (4.3-11.0)
[2022-06-05 15:26] LABS: INR 1.1 (0.8-1.4); PROTHROMBIN TIME PATIENT 14.3 SEC (12.2-14.7)
[2022-06-05 15:35] LABS: BILIRUBIN,URINE NEGATIVE (NEGATIVE); CLARITY,URINE CLEAR; COLOR,URINE YELLOW; GLUCOSE, URINE (UA) NEGATIVE (NEGATIVE); KETONES,URINE NEGATIVE (NEGATIVE); LEUKOCYTE ESTERASE ,URINE NEGATIVE (NEGATIVE); NITRITE,URINE NEGATIVE (NEGATIVE); PH,URINE 5.5 (5-9); PROTEIN,URINE NEGATIVE (NEGATIVE)
[2022-06-05 15:35] LABS: FIBRIN DEGRADATION PRODUCTS 0.46 UG/ML (0.00-0.49)
[2022-06-05 15:38] LABS: BACTERIA,URINE NEGATIVE /HPF
[2022-06-05 15:40] LABS: ALANINE AMINOTRANSFERASE 73 U/L (0-55); ALBUMIN 4.7 GM/DL (3.2-4.5); ALKALINE PHOSPHATASE 77 U/L (40-136); BILIRUBIN,TOTAL 0.8 MG/DL (0.1-1.0); BUN/CREATININE RATIO 11; CARBON DIOXIDE 25 MMOL/L (21-32); CHLORIDE 102 MMOL/L (98-107); CREATININE SERUM 1.17 MG/DL (0.60-1.30); GFR ESTIMATED 69; GLUCOSE 83 MG/DL (70-105); POTASSIUM 4.3 MMOL/L (3.6-5.0); SODIUM 142 MMOL/L (135-145); TOTAL PROTEIN 8.4 GM/DL (6.4-8.2)
[2022-06-05 15:46] LABS: AMPHETAMINE SCREEN, URINE NEGATIVE (NEGATIVE); BARBITURATE SCREEN URINE NEGATIVE (NEGATIVE); BENZODIAZEPINES SCREEN URINE NEGATIVE (NEGATIVE); CANNABINOID SCREEN, URINE NEGATIVE (NEGATIVE); COCAINE SCREEN URINE NEGATIVE (NEGATIVE); METHADONE STAT NEGATIVE (NEGATIVE); OPIATE SCREEN URINE NEGATIVE (NEGATIVE); OXYCODONE STAT NEGATIVE (NEGATIVE); PROPOXYPHENE STAT NEGATIVE (NEGATIVE); TRICYCLIC ANTIDEPRESSANTS SCRE NEGATIVE (NEGATIVE)
[2022-06-05] MEDS ORDERED: meTOproloL SUCCINATE 50 MG (TOPROL XL) TAB PO SCH (16:15)
[2022-06-05] MEDS ORDERED: MELATONIN 3 MG TABLET PO PRN (18:00)
[2022-06-05] MEDS ORDERED: ONDANSETRON 4 MG/2 ML (SDV) Z0FRAN IV PRN (18:00)
[2022-06-05] MEDS ORDERED: ANTACID SUSP 30 ML UDC (MYLANTA) PO PRN (18:00)
[2022-06-05] MEDS ORDERED: polyethylene glycoL POWDER 17 GM (MIRALAX) PACK PO PRN (18:00)
[2022-06-05 20:00] VITALS: BP 111/77
[2022-06-05] MEDS: PROPRANOLOL 20 MG (INDERAL) TABLET PO SCH (21:40)
[2022-06-06] VITALS: BP 106/71
[2022-06-06 04:00] VITALS: BP 104/71
[2022-06-06 05:12] LABS: HEMATOCRIT 39 % (40-54); HEMOGLOBIN 12.8 g/dL (13.3-17.7); MEAN CORPUSCULAR HEMOGLOBIN 31 pg (25-34); MEAN CORPUSCULAR HGB CONC 33 g/dL (32-36); MEAN CORPUSCULAR VOLUME 93 fL (80-99); MEAN PLATELET VOLUME 9.8 fL (9.0-12.2); PLATELET COUNT 201 10^3/uL (130-400); WHITE BLOOD COUNT 6.9 10^3/uL (4.3-11.0)
[2022-06-06 05:22] LABS: POTASSIUM 3.8 MMOL/L (3.6-5.0)
[2022-06-06 05:23] LABS: CALCIUM 9.2 MG/DL (8.5-10.1)
[2022-06-06 05:27] LABS: CREATININE SERUM 1.26 MG/DL (0.60-1.30)
[2022-06-06] MEDS ORDERED: PANTOPRAZOLE 20 MG TABLET (PROTONIX) PO SCH (07:00)
[2022-06-06 08:00] VITALS: BP 122/78
[2022-06-06] MEDS ORDERED: ALLOPURINOL 100 MG (ZYLOPRIM) TAB PO SCH (09:00)
[2022-06-06] MEDS: PROPRANOLOL 20 MG (INDERAL) TABLET PO SCH (09:40)
[2022-06-06] MEDS ORDERED: CETI10TA17 PO (10:43)
[2022-06-06] MEDS ORDERED: NAPR220T66 PO (10:43)
[2022-06-06] MEDS ORDERED: APIX5TAB PO (10:43)
[2022-06-06] MEDS ORDERED: PANT40TA52 PO (10:43)
[2022-06-06] MEDS ORDERED: MTP25TSR PO (11:00)
--- NOTE | 2022-06-06 11:47 | Consultation-Cardiology ---
HPI-Cardiology Cardiology Consultation Date of Consultation 06/06/22 Date of Admission Time Seen by Provider: 09:05 Indication: Atrial bigeminy, palpitations HPI Patient is a 67 y.o. male with history of PAF with multiple ablation in the past, frequent PAC, HTN, HLP. Primary back tender insulation board is Dr. Hansen and has also been following with Dr Valenzuela for his atrial fibrillation. Reports increased episodes of palpitations and dyspnea over the past 24 hours. Patient reports he had not had any recent palpitations, so decided to stop his propranolol approx 5 days ago as it makes him feel tired at times. Reports increased palpitations since stopping medications. Denies any chest pain, dizziness or lightheadedness. Home Medications & Allergies Allergies: Coded Allergies: bupropion (Verified Allergy, Unknown, 06/30/20) lisinopril (Verified Allergy, Unknown, 06/30/20) nicotine (Verified Allergy, Unknown, 06/30/20) Home Medication List Reviewed: Yes RBF-Znthge-Acsgxk Hx Patient Social History Marital Status: Smoking Status: Former Smoker 2nd Hand Smoke Exposure: No Recent Hopitalizations: No Have you traveled recently?: No Alcohol Use?: No Immunizations Up To Date Tetanus Booster (TDap): Unknown Date of Influenza Vaccine: Mar 05, 2022 Past Medical History PAF PACs HTN extobaccoism Review of Systems-General Review of Systems Constitutional: no symptoms reported, see HPI; No fever; malaise; No weakness EENTM: see HPI, no symptoms reported; No blurred vision, No double vision Respiratory: see HPI; No cough; dyspnea on exertion; No orthopnea, No short of breath, No wheezing Cardiovascular: see HPI; No chest pain; palpitations Gastrointestinal: see HPI; No abdominal pain, No constipation Musculoskeletal: no symptoms reported Skin: no symptoms reported Psychiatric/Neurological: No Symptoms Reported Reviewed Test Results Reviewed Test Results Lab Laboratory Tests 06/05/22 15:10: White Blood Count 9.1, Red Blood Count 4.68, Hemoglobin 14.7, Hematocrit 43, Mean Corpuscular Volume 92, Mean Corpuscular Hemoglobin 31, Mean Corpuscular Hemoglobin Concent 34, Red Cell Distribution Width 16.0H, Platelet Count 248, Mean Platelet Volume 9.8, Immature Granulocyte % (Auto) 0, Neutrophils (%) (Auto) 62, Lymphocytes (%) (Auto) 28, Monocytes (%) (Auto) 8, Eosinophils (%) (Auto) 1, Basophils (%) (Auto) 0, Neutrophils # (Auto) 5.7, Lymphocytes # (Auto) 2.5, Monocytes # (Auto) 0.8, Eosinophils # (Auto) 0.1, Basophils # (Auto) 0.0, Immature Granulocyte # (Auto) 0.0, Prothrombin Time 14.3, INR Comment 1.1, Activated Partial Thromboplast Time 31, D-Dimer 0.46, Sodium Level 142, Potassium Level 4.3, Chloride Level 102, Carbon Dioxide Level 25, Anion Gap 15H, Blood Urea Nitrogen 13, Creatinine 1.17, Estimat Glomerular Filtration Rate 69, BUN/Creatinine Ratio 11, Glucose Level 83, Calcium Level 10.0, Corrected Calcium , Total Bilirubin 0.8, Aspartate Amino Transf (AST/SGOT) 72H, Alanine Aminotransferase (ALT/SGPT) 73H, Alkaline Phosphatase 77, Troponin I < 0.30, Total Protein 8.4H, Albumin 4.7H, Serum Alcohol < 10 06/05/22 15:32: Urine Color YELLOW, Urine Clarity CLEAR, Urine pH 5.5, Urine Specific [place] <=1.005, Urine Protein NEGATIVE, Urine Glucose (UA) NEGATIVE, Urine Ketones NEGATIVE, Urine Nitrite NEGATIVE, Urine Bilirubin NEGATIVE, Urine Urobilinogen 0.2, Urine Leukocyte Esterase NEGATIVE, Urine RBC (Auto) NEGATIVE, Urine RBC NONE, Urine WBC NONE, Urine Squamous Epithelial Cells 5-10, Urine Crystals NONE, Urine Bacteria NEGATIVE, Urine Casts NONE, Urine Mucus NEGATIVE, Urine Culture Indicated NO, Urine Opiates Screen NEGATIVE, Urine Oxycodone Screen NEGATIVE, Urine Methadone Screen NEGATIVE, Urine Propoxyphene Screen NEGATIVE, Urine Barbiturates Screen NEGATIVE, Ur Tricyclic Antidepressants Screen NEGATIVE, Urine Phencyclidine Screen NEGATIVE, Urine Amphetamines Screen NEGATIVE, Urine Methamphetamines Screen NEGATIVE, Urine Benzodiazepines Screen NEGATIVE, Urine Cocaine Screen NEGATIVE, Urine Cannabinoids Screen NEGATIVE 06/06/22 05:00: White Blood Count 6.9, Red Blood Count 4.19L, Hemoglobin 12.8L, Hematocrit 39L, Mean Corpuscular Volume 93, Mean Corpuscular Hemoglobin 31, Mean Corpuscular Hemoglobin Concent 33, Red Cell Distribution Width 15.9H, Platelet Count 201, Mean Platelet Volume 9.8, Sodium Level 140, Potassium Level 3.8, Chloride Level 107, Carbon Dioxide Level 20L, Anion Gap 13, Blood Urea Nitrogen 16, Creatinine 1.26, Estimat Glomerular Filtration Rate 63, BUN/Creatinine Ratio 13, Glucose Level 125H, Calcium Level 9.2 ECG Impression ECG Initial ECG Rhythm: Normal Sinus, PAC Comment atrial bigeminy Physical Exam Physical Exam Vital Signs Vital Signs - First Documented 06/05/22 15:04 Temp 36.5 Pulse 75 Resp 16 B/P (MAP) 166/74 (104) Pulse Ox 96 O2 Delivery Room Air Capillary Refill : Less Than 3 Seconds Height, Weight, BMI Height: '" Weight: lbs. oz. kg; 34.91 BMI Method: General Appearance: WD/WN, Mild Distress HEENT: PERRL/EOMI Neck: Full Range of Motion Respiratory: Chest Non Tender, Lungs Clear, Normal Breath Sounds, No Accessory Muscle Use, No Respiratory Distress Cardiovascular: Regular Rate, Rhythm, Normal Peripheral Pulses, Irregularly Irregular Gastrointestinal: Normal Bowel Sounds, Non Tender, Soft Extremity: Normal Range of Motion Neurologic/Psychiatric: Alert, Oriented x3, No Motor/Sensory Deficits, Normal Mood/Affect Skin: Normal Color A/P-Cardiology Admission Diagnosis Palpitations Atrial bigeminy PAF CAD Assessment/Plan I have seen and evaluated the patient with Machelle, performed physical examinat ion and discussed the management plan, I have changed the assessment and plan Made few modification to the note and used Italic font Recurrent palpitation, history of paroxysmal atrial fibrillation/flutter with ablation done in 2012 Had recurrent APCs, atrial bigeminy, intolerant to calcium channel blockers or beta-blockers due to fatigue Agreed on taking the medication again at low-dose and monitoring symptoms Has a loop monitor implanted by Dr. Valenzuela. Followed with Dr. Hoyt and Dr. Valenzuela Labile hypertension, blood pressure is stable. Continue to monitor History of tobaccoism, educated on continuing to avoid smoking Coronary artery disease, cardiac catheterization done in June 2020 showing mild disease nonobstructive disease History of anxiety History of noncompliance with medication. Discussed the management plan, okay for discharge and follow-up with Dr. Hansen and Dr. Valenzuela as an outpatient MACHELLE MINOR Jun 06, 2022 11:47 MELVI PRUITT MD Jun 06, 2022 12:03
[2022-06-06 12:00] VITALS: BP 125/85
--- NOTE | 2022-06-06 13:56 | Diagnostic Imaging Report ---
EXAMINATION: Chest radiograph TECHNIQUE: Portable upright view of the chest obtained HISTORY: palpitations COMPARISON: Chest radiograph 10/17/2020. FINDINGS: Normal lung volume. No airspace opacity. No pleural effusion or pneumothorax. Cardiac silhouette and pulmonary vascularity are within normal limits. Subcutaneous optical glass etcher in the left chest. No acute osseous findings. IMPRESSION: 1. No acute chest findings. Dictated by: Dictated on workstation # [id number]
--- NOTE | 2022-06-06 19:24 | Short Stay Summary-Hospitalist ---
History of Present Illness HPI/Chief Complaint Tito Briones II is a 67 year old male with PMH HTN, HLD, AFib, COPD, obesity, who presented with palpitations. He denies chest pain. He was short of breath, but he says this is not new. He denies cough. He denies fevers. He denies abdominal pain, nausea, vomiting, and diarrhea. He has not been compliant with his medicat ions. He reports intolerance to his rate controlling medications due to fatigue. Source: patient Exam Limitations: no limitations Date Seen 06/06/22 Time Seen by a Provider: 10:40 Attending Physician Winifred Rosario PCP Admitting Physician: Yadira Alcala MD Attending Physician: Brielle Maria MD Referring Physician Date of Admission Jun 05, 2022 at 17:45 Home Medications & Allergies Home Medications Reviewed patient Home Medication Reconciliation performed by pharmacy medication reconciliations chemical technician and/or nursing. Patients Allergies have been reviewed. Allergies Allergies Coded Allergies bupropion (Verified Allergy, Unknown, 06/30/20) lisinopril (Verified Allergy, Unknown, 06/30/20) nicotine (Verified Allergy, Unknown, 06/30/20) Past Agdxojf-Hqhoiv-Ccuzfx Hx Patient Social History Marrital Status: Tobacco Use?: No Smoking Status: Former Smoker Smokeless Tobacco Frequency: Former User Use of E-Cig and/or Vaping dev: No Substance use?: No Alcohol Use?: No Pt feels they are or have been: No Immunizations Up To Date Date of Influenza Vaccine: Mar 05, 2022 Tetanus Booster (TDap): Unknown Current Status Advance Directives: No Communicates: Verbally Primary Language: Frisian Preferred Spoken Language: Frisian Sensory deficits: Vision impairment Implanted or Applied Medical D: Other Past Medical History Currently Using CPAP: No Currently Using BIPAP: No Atrial Fibrillation, High Cholesterol, Hypertension Ulcer Gout Family Medical History No Pertinent Family Hx Review of Systems Constitutional: weakness EENTM: no symptoms reported Respiratory: short of breath Cardiovascular: palpitations Gastrointestinal: no symptoms reported Physical Exam Physical Exam Vital Signs Vital Signs - First Documented 06/05/22 15:04 Temp 36.5 Pulse 75 Resp 16 B/P (MAP) 166/74 (104) Pulse Ox 96 O2 Delivery Room Air Capillary Refill : Less Than 3 Seconds Height, Weight, BMI Height: '" Weight: lbs. oz. kg; 34.91 BMI Method: General Appearance: No Apparent Distress, Obese HEENT: PERRL/EOMI, Pharynx Normal Neck: Normal Inspection, Supple Respiratory: Lungs Clear, Normal Breath Sounds, No Respiratory Distress Cardiovascular: No Murmur, Irregularly Irregular Gastrointestinal: Normal Bowel Sounds, Non Tender, Soft Extremity: Normal Inspection, No Pedal Edema Neurologic/Psychiatric: Alert, Oriented x3, No Motor/Sensory Deficits, Normal Mood/Affect Skin: Normal Color, Warm/Dry Results Results/Procedures Labs Laboratory Tests 06/05/22 15:10 06/06/22 05:00 Patient resulted labs reviewed. Imaging: Reviewed Imaging Report Short Stay Diagnosis Discharge Diagnosis-Short Stay Admission Diagnosis Palpitations Final Discharge Diagnosis Palpitations, atrial bigeminy, PACs Conclusion Plan Palpitations Atrial bigeminy PACs AFib Resume low dose Metoprolol Follow up with Dr. Hansen Diagnosis/Problems Diagnosis/Problems (1) Palpitations Status: Acute (2) Atrial bigeminy Status: Acute (3) PAC (premature atrial contraction) Status: Acute (4) Afib Status: Chronic Qualifiers: Qualified Codes: I48.0 - Paroxysmal atrial fibrillation BRIELLE MARIA MD Jun 06, 2022 19:24
== END 2022-06-06 11:45 | disposition home or self-care (01) ==
LOC: EDUNIT# 15:00 → ER FS 15:01 → CSD 17:45 → UNDOADMOB 17:45 → CSD 17:53 → UNDODISOB 06-06 11:45
PROVIDERS: ADMIT Family Medicine; ATTEND Internal Medicine
DX: R00.2 Palpitations (principal); I48.0 Paroxysmal atrial fibrillation; I49.1 Atrial premature depolarization; R00.8 Other abnormalities of heart beat; E66.9 Obesity, unspecified; I25.10 Atherosclerotic heart disease of native coronary artery without angina pectoris; F41.9 Anxiety disorder, unspecified; Z91.14 Patient's other noncompliance with medication regimen; Z87.891 Personal history of nicotine dependence; Z68.38 Body mass index [BMI] 38.0-38.9, adult
CPT/HCPCS: 36415; 71045; 80048; 80053; 80306; 80320; 81000; 84484; 85025; 85027; 85379; 85610; 85730; 93005; 93041

== ENCOUNTER → 2022-06-09 | Outpatient (CLI) | payer MEDICAID, MEDICARE, OTHER ==
[~2022-06-09] MED LIST changes: +APIX5TAB PO; +CETI10TA17 PO; +MTP25TSR PO; +NAPR220T66 PO; +PANT40TA52 PO
--- NOTE | 2022-06-09 16:49 | Diagnostic Imaging Report ---
EXAMINATION: CT chest without contrast. TECHNIQUE: Multiple contiguous axial images were obtained through the chest without the use of intravenous contrast. All CT scans use one or more of the following dose optimizing techniques: automated exposure control, MA and/or KvP adjustment based on patient size and exam type or iterative reconstruction. HISTORY: Short of breath COMPARISON: 12/15/2020 FINDINGS: There is no edema or pneumonia. No pleural effusion. No pneumothorax. No suspicious nodules. There is no axillary or supraclavicular lymphadenopathy. There is no mediastinal lymphadenopathy. Heart size is normal. There are moderate coronary artery calcifications. No pericardial effusion. Aorta is normal in caliber. Limited views of the upper abdomen are unremarkable. There are no suspicious osseus lesions. IMPRESSION: 1. No acute abnormality in the chest. Dictated by: Dictated on workstation # [id number]
== END ==
LOC: RAD FS 13:21
DX: Z01.89 Encounter for other specified special examinations (principal)
CPT/HCPCS: 71250

== ENCOUNTER → 2022-09-22 | Outpatient (CLI) | payer OTHER ==
[~2022-09-22] MED LIST changes: +CATHETER FLUSH 10 ML SYR IV PRN; +HOLD METFORMIN - RECEIVED CONTRAST 20 ML VIAL IV SCH; +IOHEXOL 350 MG/ML 100 ML (OMNIPAQUE 350) VIAL IV ONE; +NS 100 ML (IVPB) BAG IV ONE
[2022-09-22 13:03] LABS: CREATININE SERUM 1.23 MG/DL (0.60-1.30)
--- NOTE | 2022-09-22 13:41 | Diagnostic Imaging Report ---
PROCEDURE: CT abdomen and pelvis with contrast. TECHNIQUE: Multiple contiguous axial images were obtained through the abdomen and pelvis after administration of intravenous contrast. Auto Exposure Controls were utilized during the CT exam to meet ALARA standards for radiation dose reduction. All CT scans use one or more of the following dose optimizing techniques: Automated exposure control, MA and/or KvP adjustment based on patient size and exam type or iterative reconstruction. INDICATION: Abdominal pain x1 week. FINDINGS: Lung bases are clear. There is fatty infiltration of the liver. Gallbladder is normal. Pancreas is normal. Spleen is not enlarged. Adrenals are normal. Kidneys appear normal. There is mild aortic and renal vascular calcific atherosclerosis. There is no aneurysm. Small bowel is not dilated. There is no evidence for appendicitis. Colon is unremarkable. Urinary bladder is normal. Prostate is not enlarged. There is no intraperitoneal free air or free fluid. IMPRESSION: No acute abnormality is seen in the abdomen or pelvis. Dictated by: Dictated on workstation # [id number]
== END ==
LOC: LAB FS 12:09
PROVIDERS: ATTEND Family Medicine
DX: Z01.89 Encounter for other specified special examinations (principal)
CPT/HCPCS: 36415; 74177; 82565; 84520; Q9967

== ENCOUNTER 2022-12-13 16:53 | Emergency (ER) | payer OTHER ==
[~2022-12-13] VITALS: Ht 172 cm; Wt 100.6 kg
[~2022-12-13 16:53] MED LIST changes: -CATHETER FLUSH 10 ML SYR IV PRN; -HOLD METFORMIN - RECEIVED CONTRAST 20 ML VIAL IV SCH; -IOHEXOL 350 MG/ML 100 ML (OMNIPAQUE 350) VIAL IV ONE; -NS 100 ML (IVPB) BAG IV ONE
[2022-12-13] MEDS ORDERED: NS IV 1000 ML 1,000 ML IV STA (17:22)
[2022-12-13] MEDS ORDERED: NS IV 1000 ML 1,000 ML ONE (17:36)
[2022-12-13 17:40] LABS: BASOPHILS % (AUTO) 1 % (0-10); EOSINOPHILS # (AUTO) 0.4 10^3/uL (0.0-0.3); EOSINOPHILS % (AUTO) 5 % (0-10); HEMATOCRIT 38 % (40-54); HEMOGLOBIN 12.6 g/dL (13.3-17.7); LYMPHOCYTES # (AUTO) 1.8 10^3/uL (1.0-4.0); LYMPHOCYTES % (AUTO) 22 % (12-44); MEAN CORPUSCULAR HEMOGLOBIN 32 pg (25-34); MEAN CORPUSCULAR HGB CONC 33 g/dL (32-36); MEAN CORPUSCULAR VOLUME 96 fL (80-99); MEAN PLATELET VOLUME 9.4 fL (9.0-12.2); MONOCYTES # (AUTO) 0.8 10^3/uL (0.0-1.0); MONOCYTES % (AUTO) 10 % (0-12); NEUTROPHILS # (AUTO) 4.8 10^3/uL (1.8-7.8); NEUTROPHILS % (AUTO) 62 % (42-75); PLATELET COUNT 225 10^3/uL (130-400); WHITE BLOOD COUNT 7.8 10^3/uL (4.3-11.0)
[2022-12-13 17:42] LABS: BILIRUBIN,URINE NEGATIVE (NEGATIVE); CLARITY,URINE CLEAR; COLOR,URINE YELLOW; GLUCOSE, URINE (UA) NEGATIVE (NEGATIVE); KETONES,URINE NEGATIVE (NEGATIVE); LEUKOCYTE ESTERASE ,URINE NEGATIVE (NEGATIVE); NITRITE,URINE NEGATIVE (NEGATIVE); PROTEIN,URINE NEGATIVE (NEGATIVE)
--- NOTE | 2022-12-13 17:43 | ED General ---
General Chief Complaint: General Problems/Pain Stated Complaint: LETHARGIC,DIZZY Nursing Triage Note: ARRIVED VIA AMB WITH COMPLAINTS OF A STUFFY HEAD THIS AM. TOOK A CLARITON AT 1000 AND A MUSINEX AT 1200. SINCE THEN HE HAS BECAME DIZZY, SICK TO HIS STOMACH, AND HIGH BP. Source of Information: Patient History of Present Illness Date Seen by Provider: Dec 13, 2022 Time Seen by Provider: 17:00 Initial Comments 67-year-old male presenting with multiple general complaints. He states that he has been having sinus pressure and congestion for over 6 months. The [facility] has been trying to get him in with ENT. The [facility] had recommended he try using Claritin for a month and Mucinex to see if that would help. He took the Claritin 3 hours earlier today than he usually does and then he took the Mucinex around noon. He started feeling lethargic and worse this afternoon and noted that his blood pressure was going up. He states normally he has a low blood pressure but with not feeling well his blood pressure had gone up on him. He states he has been drinking a lot of water and drink some electrolytes this morning but still was feeling dizzy at times. He denied having a fever or chills, chest pain, cough, pain with urination, diarrhea, nausea, vomiting Timing/Duration: 4-6 Hours Severity: Moderate Associated Systoms: No Chest Pain, No Cough, No Diaphoresis, No Fever/Chills; Headaches, Loss of Appetite, Malaise; No Nausea/Vomiting, No Rash, No Seizure, No Shortness of Air, No Syncope, No Weakness Allergies and Home Medications Allergies Coded Allergies: bupropion (Verified Allergy, Unknown, 06/30/20) lisinopril (Verified Allergy, Unknown, 06/30/20) nicotine (Verified Allergy, Unknown, 06/30/20) Patient Home Medication List Home Medication List Reviewed: Yes Allopurinol (Allopurinol) 100 Mg Tablet, 100 MG PO DAILY, (Reported) Entered as Reported by: JORGE DNO on 06/30/20 0741 Apixaban (Eliquis) 5 Mg Tablet, 5 MG PO BID, (Reported) Entered as Reported by: CHRISTINE BUTLER on 06/06/22 1043 Atorvastatin Calcium (Atorvastatin Calcium) 80 Mg Tablet, 40 MG PO HS, (Reported) Entered as Reported by: JORGE DON on 06/30/20 0741 Cetirizine HCl (Cetirizine HCl) 10 Mg Tablet, 10 MG PO DAILY, (Reported) Entered as Reported by: CHRISTINE BUTLER on 06/06/22 1043 Metoprolol Succinate (Metoprolol Succinate) 25 Mg Tab.er.24h, 12.5 MG PO HS, (Reported) Entered as Reported by: BRIELLE MARIA on 06/06/22 1100 Naproxen Sodium (Aleve) 220 Mg Tablet, 220-440 MG PO BID PRN for PAIN-MILD (1- 4), (Reported) Entered as Reported by: CHRISTINE BUTLER on 06/06/22 1043 Pantoprazole Sodium (Pantoprazole Sodium) 40 Mg Tablet.dr, 40 MG PO BID, (Reported) Entered as Reported by: CHRISTINE BUTLER on 06/06/22 1043 Review of Systems Review of Systems Constitutional: No chills; dizziness; No fever EENTM: see HPI, nose congestion Respiratory: No cough, No short of breath Cardiovascular: no symptoms reported Gastrointestinal: see HPI Genitourinary: no symptoms reported Musculoskeletal: no symptoms reported Skin: No rash Psychiatric/Neurological: Headache Past Cobybsj-Ucfaei-Ecsthy Hx Patient Social History Tobacco Use?: Yes Smoking Status: Former Smoker Substance use?: No Alcohol Use?: No Immunizations Up To Date Tetanus Booster (TDap): Unknown Past Medical History Surgery/Hospitalization HX: A-FIB WITH 3 ABLATIONS Surgeries: Yes (KNEE RECONSTRUCTION ON RIGHT) Respiratory: No Currently Using CPAP: No Currently Using BIPAP: No Cardiac: Yes Atrial Fibrillation, High Cholesterol, Hypertension Neurological: No Genitourinary: No Gastrointestinal: Yes Ulcer Musculoskeletal: Yes (DVT) Gout Endocrine: No Cancer: No Psychosocial: No Family Medical History No Pertinent Family Hx Physical Exam Vital Signs Vital Signs - First Documented 12/13/22 16:55 Temp 36.5 Pulse 82 Resp 16 B/P (MAP) 180/90 (120) Pulse Ox 96 O2 Delivery Room Air Capillary Refill : Less Than 3 Seconds Height, Weight, BMI Height: '" Weight: lbs. oz. 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 Norm as Tested Skin: Normal Color, Warm/Dry Progress/Results/Core Measures Suspected Sepsis SIRS Temperature: Pulse: 82 Respiratory Rate: 16 Laboratory Tests 12/13/22 17:35: White Blood Count 7.8 Blood Pressure 180 /90 Mean: 120 Laboratory Tests 12/13/22 17:35: Creatinine 1.07, INR Comment 1.2, Platelet Count 225, Total Bilirubin 0.4 Results/Orders Lab Results Laboratory Tests Test 12/13/22 17:35 Range/Units White Blood Count 7.8 4.3-11.0 10^3/uL Red Blood Count 3.99 L 4.30-5.52 10^6/uL Hemoglobin 12.6 L 13.3-17.7 g/dL Hematocrit 38 L 40-54 % Mean Corpuscular Volume 96 80-99 fL Mean Corpuscular Hemoglobin 32 25-34 pg Mean Corpuscular Hemoglobin Concent 33 32-36 g/dL Red Cell Distribution Width 15.6 H 10.0-14.5 % Platelet Count 225 130-400 10^3/uL Mean Platelet Volume 9.4 9.0-12.2 fL Immature Granulocyte % (Auto) 0 % Neutrophils (%) (Auto) 62 42-75 % Lymphocytes (%) (Auto) 22 12-44 % Monocytes (%) (Auto) 10 0-12 % Eosinophils (%) (Auto) 5 0-10 % Basophils (%) (Auto) 1 0-10 % Neutrophils # (Auto) 4.8 1.8-7.8 10^3/uL Lymphocytes # (Auto) 1.8 1.0-4.0 10^3/uL Monocytes # (Auto) 0.8 0.0-1.0 10^3/uL Eosinophils # (Auto) 0.4 H 0.0-0.3 10^3/uL Basophils # (Auto) 0.0 0.0-0.1 10^3/uL Immature Granulocyte # (Auto) 0.0 0.0-0.1 10^3/uL Percent Immature Platelet Fraction 3.7 0.0-7.6 % Prothrombin Time 15.3 H 12.2-14.7 SEC INR Comment 1.2 0.8-1.4 Activated Partial Thromboplast Time 33 24-35 SEC Urine Color YELLOW Urine Clarity CLEAR Urine pH 6.0 5-9 Urine Specific [place] <=1.005 1.016-1.022 Urine Protein NEGATIVE NEGATIVE Urine Glucose (UA) NEGATIVE NEGATIVE Urine Ketones NEGATIVE NEGATIVE Urine Nitrite NEGATIVE NEGATIVE Urine Bilirubin NEGATIVE NEGATIVE Urine Urobilinogen 0.2 < = 1.0 MG/DL Urine Leukocyte Esterase NEGATIVE NEGATIVE Urine RBC (Auto) NEGATIVE NEGATIVE Urine RBC NONE /HPF Urine WBC NONE /HPF Urine Squamous Epithelial Cells 2-5 /HPF Urine Crystals NONE /LPF Urine Bacteria NEGATIVE /HPF Urine Casts NONE /LPF Urine Mucus NEGATIVE /LPF Urine Culture Indicated NO Sodium Level 140 135-145 MMOL/L Potassium Level 4.1 3.6-5.0 MMOL/L Chloride Level 106 98-107 MMOL/L Carbon Dioxide Level 25 21-32 MMOL/L Anion Gap 9 5-14 MMOL/L Blood Urea Nitrogen 14 7-18 MG/DL Creatinine 1.07 0.60-1.30 MG/DL Estimat Glomerular Filtration Rate 77 BUN/Creatinine Ratio 13 Glucose Level 102 70-105 MG/DL Calcium Level 9.2 8.5-10.1 MG/DL Corrected Calcium 9.0 8.5-10.1 MG/DL Magnesium Level 2.0 1.6-2.4 MG/DL Total Bilirubin 0.4 0.1-1.0 MG/DL Aspartate Amino Transf (AST/SGOT) 43 H 5-34 U/L Alanine Aminotransferase (ALT/SGPT) 43 0-55 U/L Alkaline Phosphatase 67 40-136 U/L Troponin I < 0.30 <0.30 NG/ML Pro-B-Type Natriuretic Peptide 43.6 <125.0 PG/ML Total Protein 7.3 6.4-8.2 GM/DL Albumin 4.2 3.2-4.5 GM/DL My Orders Orders - TRAN SAHU MD Cbc With Automated Diff (12/13/22 17:22) Magnesium (12/13/22 17:22) Comprehensive Metabolic Panel (12/13/22 17:22) Protime With Inr (12/13/22 17:22) Partial Thromboplastin Time (12/13/22 17:22) Ed Iv/Invasive Line Start (12/13/22 17:22) Troponin I Fs (12/13/22 17:22) Probnp Fs (12/13/22 17:22) Ua Culture If Indicated (12/13/22 17:22) Ns Iv 1000 Ml (Sodium Chloride 0.9%) (12/13/22 17:22) Ns Iv 1000 Ml (Sodium Chloride 0.9%) (12/13/22 17:36) Vital Signs/I&O 12/13/22 12/13/22 16:55 18:57 Temp 36.5 Pulse 82 77 Resp 16 16 B/P (MAP) 180/90 (120) 133/76 Pulse Ox 96 96 O2 Delivery Room Air Room Air Capillary Refill : Less Than 3 Seconds Blood Pressure Mean: 120 Progress Note #1: Progress Note Potential diagnosis of sinusitis, anxiety, electrolyte imbalance, URI. Initial blood pressure was elevated to 180/90 but as he was resting in the bed it was coming down to 153/80 and then 131/78. He reports having a dry mouth and felt that that was from the Claritin and the Mucinex. His exam was otherwise benign. Will obtain peripheral IV access and send labs for complete blood count, comprehensive metabolic panel, coagulation factors, troponin, magnesium, proBNP. Urinalysis to look at his hydration and look for infection. Administer normal saline 1 L IV fluid bolus for hydration and see if that helps with his dizziness and blood pressure. Discussed performing a CT scan of his sinuses since he has had issues for over 6 months to look for polyps or sinusitis and patient refused. He states that he does have a bad tooth and was recently on amoxicillin but did not feel like it helped his sinuses over the tooth. Progress Note #2: Time: 17:48 Progress Note Urinalysis shows dilute urine with specific gravity <1.005. He had no indicators of UTI or kidney damage. Complete blood count was ok as well as he had normal WBC count of 7.8 with Hemoglobin 12.6. Coagulation factors and Comprehensive metabolic profile pending. Progress Note #3: Progress Note Comprehensive metabolic profile, troponin as well as magnesium all looked ok and not acute significant abnormality. Reassured patient on labs and results. He states he does feel little better after getting the fluid hydration here in the ED. Counseled on follow-up and return precautions. Reviewed with him possible treatments for the sinus pressure and dizziness. Advised that he could try using [id number] meclizine or Antivert to help with the dizziness. Consider stopping the Claritin since he feels like it was making things worse. He could also try doing nasal sinus rinse and/or nasal steroid spray or at least a nasal saline spray to try and help with the congestion and swelling. [facility]. Patient's blood pressure continued to improve during his ED visit and he admits that the elevated blood pressure may have been more due to worry and anxiety. Departure Impression Primary Impression: Sinus pressure Additional Impressions: Medication side effect Dizziness Disposition: 01 HOME, SELF-CARE Condition: Stable Departure-Patient Inst. Decision time for Depature: 18:35 Referrals: NO,LOCAL PHYSICIAN (PCP/Family) Primary Care Physician Patient Instructions: Vertigo ED, Dizziness, Adult ED, Sinusitis, Adult ED Add. Discharge Instructions: Consider stopping the Claritin as it could be causing you to have dry mouth and some dizziness. You could try taking over the counter Meclizine (Antivert) to see if that helps with dizziness and sinus pressure. Also over the counter you could try a nasal steroid spray such as Nasonex or Flonase. At least using a nasal saline spray or sinus rinse could help with the pressure and congestion until you can get in with the ENT specialist. Follow up with [facility] about your [facility]uses and getting in with ENT doctor. Try to stay well hydrated and keep taking your medicines as prescribed. All discharge instructions reviewed with patient and/or family. Voiced understanding. TRAN SAHU MD Dec 13, 2022 17:43
[2022-12-13 17:48] LABS: BACTERIA,URINE NEGATIVE /HPF
[2022-12-13 17:55] LABS: INR 1.2 (0.8-1.4); PROTHROMBIN TIME PATIENT 15.3 SEC (12.2-14.7)
[2022-12-13 18:01] LABS: POTASSIUM 4.1 MMOL/L (3.6-5.0); SODIUM 140 MMOL/L (135-145)
[2022-12-13 18:06] LABS: BUN/CREATININE RATIO 13; CALCIUM 9.2 MG/DL (8.5-10.1); CARBON DIOXIDE 25 MMOL/L (21-32); CHLORIDE 106 MMOL/L (98-107); CREATININE SERUM 1.07 MG/DL (0.60-1.30); GFR ESTIMATED 77; GLUCOSE 102 MG/DL (70-105)
[2022-12-13 18:07] LABS: ALANINE AMINOTRANSFERASE 43 U/L (0-55); ALBUMIN 4.2 GM/DL (3.2-4.5); ALKALINE PHOSPHATASE 67 U/L (40-136); BILIRUBIN,TOTAL 0.4 MG/DL (0.1-1.0); TOTAL PROTEIN 7.3 GM/DL (6.4-8.2)
[2022-12-13 18:57] VITALS: BP 133/76
== END 2022-12-13 18:57 | disposition home or self-care (01) ==
LOC: EDUNIT# 16:53 → ER FS 16:54
DX: R42 Dizziness and giddiness (principal); T45.0X5A Adverse effect of antiallergic and antiemetic drugs, initial encounter; J32.9 Chronic sinusitis, unspecified; Z87.891 Personal history of nicotine dependence
CPT/HCPCS: 36415; 80053; 81000; 83735; 83880; 84484; 85025; 85610; 85730

== ENCOUNTER → 2022-12-29 | Outpatient (CLI) | payer OTHER ==
--- NOTE | 2022-12-29 10:38 | Diagnostic Imaging Report ---
PROCEDURE: CT maxillofacial without contrast. TECHNIQUE: Multiple contiguous axial images were obtained through the facial bones without the use of intravenous contrast. Auto Exposure Controls were utilized during the CT exam to meet ALARA standards for radiation dose reduction. INDICATION: Chronic sinusitis The maxillary sinuses are clear. Ostiomeatal units are widely patent. Ethmoid air cells are clear. Frontal sinuses are clear. Sphenoid sinuses are clear. Nasal passages are clear. Mastoid air cells are clear. IMPRESSION: Unremarkable CT paranasal sinuses. Dictated by: Dictated on workstation # [id number]
== END ==
LOC: RAD FS 08:10
PROVIDERS: ATTEND Family Medicine
DX: J32.9 Chronic sinusitis, unspecified (principal)
CPT/HCPCS: 70486